=== PATIENT | male | born 1970 | race Hispanic/Latino ===

== ENCOUNTER 2016-12-20 16:08 | Emergency (ER) | payer MEDICAID ==
[2016-12-20 16:16] VITALS: TEMP 98.9
[2016-12-20] MEDS ORDERED: Famotidine 20mg/50ml 20 MG/50 ML BAG IVPB STA (16:25)
--- NOTE | 2016-12-20 16:30 | ED PDOC ---
Arrival/HPI - General Chief Complaint: Abdominal Pain Time Seen by Provider: 12/20/16 16:20 Historian: Patient - History of Present Illness Narrative History of Present Illness (Text): 12/20/16 16:25 45 yo male, h/o Hep C, appendectomy, tonsillectomy, presents to the ED c/o epigastric abdominal pain x 1 day. States he felt nauseous this morning and vomited a couple of times. No fever, chills or bodyaches. Abdominal pain felt achy and gassy. States that he last used alcohol yesterday and heroine IV yesterday. Patient denies back pain, diarrhea or constipation. No tremors. He's concerned that he missed his court appointment so would like a note. PMD: No PMD Past Medical History - Provider Review Nursing Documentation Reviewed: Yes - Cardiac Hx Cardiac Disorders: No Hx Hypertension: No - Pulmonary Hx Respiratory Disorders: No Hx Tuberculosis: No - Neurological HX Cerebrovascular Accident: No Hx Seizures: No - HEENT Hx HEENT Disorder: No - Renal Hx Renal Disorder: No - Endocrine/Metabolic Hx Endocrine Disorders: No - Hematological/Oncological Hx Blood Disorders: No Hx Cancer: No - Integumentary Hx Dermatological Disorder: No - Musculoskeletal/Rheumatological Hx Musculoskeletal Disorders: No - Gastrointestinal Other/Comment: ABD PAIN - Genitourinary/Gynecological Hx Genitourinary Disorders: No Hx Sexually Transmitted Diseases: No - Psychiatric Hx Psychophysiologic Disorder: No Hx Substance Use: Yes (ADMITS TO USING IV HEROINE 11/18) - Surgical History Hx Appendectomy: Yes Hx Tonsillectomy: Yes - Anesthesia Hx Anesthesia: Yes Family/Social History - Physician Review Nursing Documentation Reviewed: Yes Family/Social History: No Known Family HX Smoking Status: Light Smoker < 10 Cigarettes Daily Hx Alcohol Use: Yes Hx Substance Use: Yes (ADMITS TO USING IV HEROINE 11/18) Substance used: heroine Allergies/Home Meds Allergies/Adverse Reactions: Allergies No Known Allergies Allergy (Verified 12/20/16 16:11) Review of Systems - Physician Review All systems were reviewed & negative as marked: Yes - Review of Systems Constitutional: Normal Eyes: Normal ENT: Normal Respiratory: Normal Cardiovascular: Normal Gastrointestinal: Abdominal Pain, Vomiting. absent: Nausea Genitourinary Male: Normal Musculoskeletal: Normal Skin: Normal Neurological: Normal Endocrine: Normal Hemo/Lymphatic: Normal Psychiatric: Normal Physical Exam Vital Signs Reviewed: Yes Vital Signs Temp Pulse Resp BP Pulse Ox 12/20/16 16:11 98.9 F 83 17 137/78 99 Temperature: Afebrile Blood Pressure: Normal Pulse: Regular Respiratory Rate: Normal Appearance: Positive for: Well-Appearing, Non-Toxic, Comfortable Pain Distress: None Mental Status: Positive for: Alert and Oriented X 3 - Systems Exam Head: Present: Atraumatic, Normocephalic Pupils: Present: PERRL Extroacular Muscles: Present: EOMI Conjunctiva: Present: Normal Mouth: Present: Moist Mucous Membranes Neck: Present: Normal Range of Motion Respiratory/Chest: Present: Clear to Auscultation, Good Air Exchange. No: Respiratory Distress, Accessory Muscle Use Cardiovascular: Present: Regular Rate and Rhythm, Normal S1, S2. No: Murmurs Abdomen: Present: Tenderness (mild epigastric tenderness), Normal Bowel Sounds. No: Distention, Peritoneal Signs Back: Present: Normal Inspection Upper Extremity: Present: Normal Inspection. No: Cyanosis, Edema Lower Extremity: Present: Normal Inspection. No: Edema Neurological: Present: GCS=15, CN II-XII Intact, Speech Normal, Normal Cerebellar Funct. No: Motor Func Grossly Intact, Normal Sensory Function Skin: Present: Warm, Dry, Normal Color. No: Rashes Psychiatric: Present: Alert, Oriented x 3, Normal Insight, Normal Concentration Medical Decision Making ED Course and Treatment: 12/20/16 16:59 45 yo male with abdominal pain and vomiting r/o gastritis r/o pancreatitis -- Labs -- Pepcid IV -- IVF 12/20/16 17:52 Patient's LFT's mildly elevated. He is feeling and is asking for tylenol for a mild headache. Advised I can give him once dose to avoid tylenol use because of his elevated LFTs. Advised to take pepcid for the stomach and avoid nsaids spicy foods or anyother foods that will upset his stomach. He will f/u with his primary doctor he states that is offerred by his insurance. He also needed a note for court. I gave him a work note. 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 - Lab Interpretations Lab Results: 12/20/16 16:50 12/20/16 16:50 Lab Results 12/20/16 16:50: Sodium 136, Potassium 3.6, Chloride 104, Carbon Dioxide 23, Anion Gap 13, BUN 18, Creatinine 0.7, Est GFR ( Amer) > 60, Est GFR (Non- Af Amer) > 60, Random Glucose 142 H, Calcium 9.0, Total Bilirubin 0.9, AST 140 H , ALT 145 H, Alkaline Phosphatase 98, Total Protein 8.0, Albumin 4.0, Globulin 4.0, Albumin/Globulin Ratio 1.0 L, Lipase 30 12/20/16 16:50: WBC 3.0 L, RBC 3.87, Hgb 12.2 L, Hct 34.7 L, MCV 89.7, MCH 31.5 , MCHC 35.2, RDW 14.0, Plt Count 50 L, MPV 10.1, Gran % 67.7, Lymph % (Auto) 22.4, Levy % (Auto) 7.6 H, Eos % (Auto) 2.3, Baso % (Auto) 0.0, Gran # 2.05, Lymph # 0.7 L, Levy # 0.2, Eos # 0.1, Baso # 0.00 - Medication Orders Current Medication Orders: Acetaminophen (Tylenol 325mg Tab) 650 mg PO STAT STA Stop: 12/20/16 17:52 Sodium Chloride (Sodium Chloride 0.9%) 1,000 mls @ 999 mls/hr IV .Q1H1M STA Stop: 12/20/16 18:00 Last Admin: 12/20/16 17:05 Dose: 999 mls/hr Ibuprofen (Motrin Tab) 600 mg PO STAT STA Stop: 12/20/16 17:52 Discontinued Medications Famotidine (Pepcid 20mg/50ml Premix) 20 mg in 50 mls @ 100 mls/hr IVPB STAT STA Stop: 12/20/16 16:54 Last Admin: 12/20/16 17:04 Dose: 100 mls/hr Disposition/Present on Arrival - Present on Arrival Any Indicators Present on Arrival: No History of DVT/PE: No History of Uncontrolled Diabetes: No Urinary Catheter: No History of Decub. Ulcer: No History Surgical Site Infection Following: None - Disposition Have Diagnosis and Disposition been Completed?: Yes Diagnosis: Abdominal pain Disposition: HOME/ ROUTINE Disposition Time: 17:55 Patient Plan: Discharge Patient Problems: Current Active Problems Problem Status Onset Abdominal pain Acute Condition: IMPROVED Discharge Instructions (ExitCare): Narcotic Abuse (ED), Acute Abdominal Pain ( ED) Additional Instructions: Mr Eddy, thank you for letting us take care of you today. Your provider was Dr. Cox. You were treated for Abdominal Pain, elevated Liver enzymes. The emergency medical care you received today was directed at your acute symptoms. If you were prescribed any medication, please fill it and take as directed. It may take several days for your symptoms to resolve. Return to the Emergency Department if your symptoms worsen, do not improve, or if you have any other problems. Please contact your doctor or call one of the physicians/clinics you have been referred to that are listed on the Patient Visit Information form that is included in your discharge packet. Bring any paperwork you were given at discharge with you along with any medications you are taking to your follow up visit. Our treatment cannot replace ongoing medical care by a primary care provider (PCP) outside of the emergency department. Thank you for allowing the [facility] team to be part of your care today. If you had an X-Ray or CT scan: A Radiologist will review the ED reading if any change in treatment is needed we will contact you. If you had a blood, urine, or wound culture: It will take several days for the results, if any change in treatment is needed we will contact you. If you had an STI test: It will take 48 hours for the results. Please call after 1 week if you have not heard back. Prescriptions: Ranitidine HCl [Zantac] 150 mg PO BID PRN #30 tablet PRN Reason: Pain, Mild (1-3) Referrals: Elidia Lieberman DO [Primary Care Provider] - Follow up with primary Forms: [employer] (Kittitian), WORK NOTE
[2016-12-20] MEDS ORDERED: Sodium Chloride 0.9% 1,000 ML IV STA (17:00)
[2016-12-20 17:04] LABS: ADD MANUAL DIFF? NO
[2016-12-20 17:08] LABS: EOS # 0.1 (0.0-0.7); EOS % 2.3 % (1.5-5.0); GRAN # 2.05 (1.4-6.5); GRAN % 67.7 % (50.0-68.0); HEMATOCRIT 34.7 % (42.0-52.0); LYMPH # 0.7 (1.2-3.4); LYMPH % 22.4 % (22.0-35.0); MEAN CELL VOLUME 89.7 fL (80.0-105.0); MEAN CORPUSCULAR HEMOGLOBIN 31.5 pg (25.0-35.0); MEAN CORPUSCULAR HGB CONC 35.2 g/dl (31.0-37.0); MEAN PLATELET VOLUME 10.1 fl (7.0-11.0); MONO # 0.2 (0.1-0.6); MONO % 7.6 % (1.0-6.0); PLATELET COUNT 50 10^3/uL (120.0-450.0)
[2016-12-20 17:28] LABS: ALKALINE PHOSPHATASE 98 U/L (38-133); ALT/SGPT 145 U/L (7-56); AST/SGOT 140 U/L (15-59); BILIRUBIN,TOTAL 0.9 mg/dL (0.2-1.3); BLOOD UREA NITROGEN 18 mg/dL (7-21); CARBON DIOXIDE 23 mmol/L (21-33); CHLORIDE 104 mmol/L (98-107); GFR AFRICAN-AMERICAN > 60; GLUCOSE,RANDOM 142 mg/dL (70-110); LIPASE 30 U/L (23-300); POTASSIUM 3.6 mmol/L (3.6-5.0); SODIUM 136 mmol/L (132-148)
[2016-12-20 17:54] VITALS: BP 120/72; PULSE 63; RESP 18; O2SAT 97
== END 2016-12-20 18:15 | disposition home or self-care (01) ==
LOC: ED 16:08
DX: R10.9 Unspecified abdominal pain (principal)
CPT/HCPCS: 80053; 83690; 85025; 99283; J7040

== ENCOUNTER 2017-11-11 12:09 | Emergency (ER) | payer MEDICAID, OTHER ==
[2017-11-11 12:30] VITALS: BP 129/70; O2SAT 99
--- NOTE | 2017-11-11 12:37 | ED PDOC ---
Arrival/HPI - General Chief Complaint: Substance Abuse Time Seen by Provider: 11/11/17 12:33 Historian: Patient - History of Present Illness Narrative History of Present Illness (Text): 11/11/17 46 year old male, who presents to the emergency department s/p being found wandering on the streets after sniffing two bags of Heroin. Patient reports he is an occasional drinker and did not consume ETOH today. Patient notes on the daily he uses one to two bags of heroin by sniffing. patient currently has no other complaints. Time/Duration: Prior to Arrival Symptom Onset: Sudden Symptom Course: Unchanged Context: Street Past Medical History - Provider Review Nursing Documentation Reviewed: Yes - Infectious Disease Hx of Infectious Diseases: None - Cardiac Hx Cardiac Disorders: No Hx Hypertension: No - Pulmonary Hx Respiratory Disorders: No Hx Tuberculosis: No - Neurological HX Cerebrovascular Accident: No Hx Seizures: No - HEENT Hx HEENT Disorder: No - Renal Hx Renal Disorder: No - Endocrine/Metabolic Hx Endocrine Disorders: No - Hematological/Oncological Hx Blood Disorders: No Hx Cancer: No - Integumentary Hx Dermatological Disorder: No - Musculoskeletal/Rheumatological Hx Musculoskeletal Disorders: No - Gastrointestinal Other/Comment: ABD PAIN - Genitourinary/Gynecological Hx Genitourinary Disorders: No Hx Sexually Transmitted Diseases: No - Psychiatric Hx Psychophysiologic Disorder: No Hx Substance Use: Yes (ADMITS TO USING IV HEROINE 11/18) - Surgical History Hx Appendectomy: Yes Hx Tonsillectomy: Yes - Anesthesia Hx Anesthesia: Yes Family/Social History - Physician Review Nursing Documentation Reviewed: Yes Family/Social History: Unknown Family HX Smoking Status: Light Smoker < 10 Cigarettes Daily Hx Alcohol Use: Yes Hx Substance Use: Yes (ADMITS TO USING IV HEROINE 11/18) Substance used: heroine Allergies/Home Meds Allergies/Adverse Reactions: Allergies No Known Allergies Allergy (Verified 12/20/16 16:11) Review of Systems - Physician Review All systems were reviewed & negative as marked: Yes - Review of Systems Constitutional: absent: Fevers Respiratory: absent: SOB Cardiovascular: absent: Chest Pain Psychiatric: Other (heroin use) Physical Exam Vital Signs Reviewed: Yes Vital Signs Temp Pulse Resp BP Pulse Ox 11/11/17 13:52 98.1 F 70 19 99 11/11/17 12:29 98.6 F 68 18 129/70 99 Temperature: Afebrile Blood Pressure: Normal Pulse: Regular Respiratory Rate: Normal Appearance: Positive for: Well-Appearing, Non-Toxic, Comfortable Pain Distress: None Mental Status: Positive for: Alert and Oriented X 3 - Systems Exam Head: Present: Atraumatic, Normocephalic Pupils: Present: PERRL Extroacular Muscles: Present: EOMI Conjunctiva: Present: Normal Respiratory/Chest: Present: Clear to Auscultation, Good Air Exchange. No: Respiratory Distress, Accessory Muscle Use, Wheezes, Decreased Breath Sounds, Rhonchi Cardiovascular: Present: Regular Rate and Rhythm, Normal S1, S2. No: Murmurs Abdomen: No: Tenderness, Distention, Peritoneal Signs, Rebound, Guarding Neurological: Present: GCS=15, CN II-XII Intact, Speech Normal Skin: Present: Warm, Dry, Normal Color. No: Rashes Psychiatric: Present: Alert, Oriented x 3, Normal Insight, Normal Concentration Medical Decision Making ED Course and Treatment: 11/11/17 Impression: 46 year old male with unremarkable exam who presents to emergency department s/ p heroin use Plan: -- EKG -- Labs -- Reassess and disposition Progress Notes: EKG: Ordered, reviewed, and independently interpreted the EKG. Rate : 68 BPM Rhythm : NSR Interpretation : No ST-segment elevations or depressions, no T-wave inversions, normal intervals. Comparison : No previous EKG for comparison. 11/11/17 13:47 Patient is currently alert, awake, and oriented with no present complaints. - Lab Interpretations Lab Results: 11/11/17 12:25 11/11/17 12:25 Lab Results 11/11/17 13:23: Urine Opiates Screen Positive H, Urine Methadone Screen Negative , Ur Barbiturates Screen Negative, Ur Phencyclidine Scrn Negative, Ur Amphetamines Screen Negative, U Benzodiazepines Scrn Negative, U Oth Cocaine Metabols Positive H, U Cannabinoids Screen Negative 11/11/17 12:25: Alcohol, Quantitative < 10 11/11/17 12:25: Salicylates < 1 L, Acetaminophen < 10.0 L 11/11/17 12:25: Sodium 144, Potassium 3.5 L, Chloride 111 H, Carbon Dioxide 23, Anion Gap 14, BUN 16, Creatinine 0.7 L, Est GFR ( Amer) > 60, Est GFR ( Non-Af Amer) > 60, Random Glucose 189 H, Calcium 8.6, Total Bilirubin 0.9, AST 146 H, ALT 116 H, Alkaline Phosphatase 110, Total Protein 7.2, Albumin 3.5, Globulin 3.7, Albumin/Globulin Ratio 0.9 L 11/11/17 12:25: WBC 1.8 L* D, RBC 3.76, Hgb 11.5 L, Hct 34.0 L, MCV 90.4, MCH 30.6, MCHC 33.8, RDW 15.1 H, Plt Count 48 L*, MPV 10.6, Gran % 58.1, Lymph % ( Auto) 30.2, Shannon % (Auto) 5.0, Eos % (Auto) 6.7 H, Baso % (Auto) 0.0, Gran # 1.04 L, Lymph # (Auto) 0.5 L, Shannon # (Auto) 0.1, Eos # (Auto) 0.1, Baso # (Auto ) 0.00 I have reviewed the lab results: Yes - EKG Interpretation Interpreted by ED Physician: Yes Type: 12 lead EKG - Scribe Statement The provider has reviewed the documentation as recorded by the Perrye Sofie Brunson Provider Scribe Attestation: All medical record entries made by the Akikoibe were at my direction and personally dictated by me. I have reviewed the chart and agree that the record accurately reflects my personal performance of the history, physical exam, medical decision making, and the department course for this patient. I have also personally directed, reviewed, and agree with the discharge instructions and disposition. Disposition/Present on Arrival - Present on Arrival Any Indicators Present on Arrival: No History of DVT/PE: No History of Uncontrolled Diabetes: No Urinary Catheter: No History of Decub. Ulcer: No History Surgical Site Infection Following: None - Disposition Have Diagnosis and Disposition been Completed?: Yes Diagnosis: Heroin abuse, Thrombocytopenia, Leukopenia Disposition: HOME/ ROUTINE Disposition Time: 13:15 Condition: IMPROVED Discharge Instructions (ExitCare): Drug Abuse and Drug Addiction (DC) Additional Instructions: Thank you for letting us take care of you today. The emergency medical care you received today was directed at your acute symptoms. If you were prescribed any medication, please fill it and take as directed. It may take several days for your symptoms to resolve. Return to the Emergency Department if your symptoms worsen, do not improve, or if you have any other problems. Please contact your doctor or call one of the physicians/clinics you have been referred to that are listed on the Patient Visit Information form that is included in your discharge packet. Bring any paperwork you were given at discharge with you along with any medications you are taking to your follow up visit. Our treatment cannot replace ongoing medical care by a primary care provider (PCP) outside of the emergency department. Thank you for allowing the [facility] team to be part of your care today. Follow up with your primary doctor in 2-3 days for re-evaluation and further management. Referrals: John Lieberman APN [Primary Care Provider] - Follow up with primary Forms: [employer] (Malawian)
[2017-11-11 12:43] LABS: EOS # 0.1 (0.0-0.7); EOS % 6.7 % (1.5-5.0); GRAN # 1.04 (1.4-6.5); GRAN % 58.1 % (50.0-68.0); HEMOGLOBIN 11.5 g/dL (14.0-18.0); LYMPH # 0.5 (1.2-3.4); LYMPH % 30.2 % (22.0-35.0); MEAN CELL VOLUME 90.4 fl (80.0-105.0); MEAN CORPUSCULAR HEMOGLOBIN 30.6 pg (25.0-35.0); MEAN CORPUSCULAR HGB CONC 33.8 g/dl (31.0-37.0); MEAN PLATELET VOLUME 10.6 fl (7.0-11.0); MONO # 0.1 (0.1-0.6); RBC 3.76 10^6/uL (3.5-6.1); RED CELL DISTRIBUTION WIDTH 15.1 % (11.5-14.5)
[2017-11-11 12:53] LABS: WHITE BLOOD COUNT 1.8 10^3/ul (4.5-11.0)
[2017-11-11 12:57] LABS: ALB/GLOB RATIO 0.9 (1.1-1.8); ALBUMIN 3.5 g/dL (3.0-4.8); ALT/SGPT 116 U/L (7-56); AST/SGOT 146 U/L (17-59); BLOOD UREA NITROGEN 16 mg/dL (7-21); CALCIUM 8.6 mg/dL (8.4-10.5); GFR AFRICAN-AMERICAN > 60; GFR NON-AFRICAN AMERICAN > 60
[2017-11-11 12:58] LABS: ACETAMINOPHEN < 10.0 ug/ml (10.0-20.0); SALICYLATE < 1 mg/dL (2.0-20.0)
[2017-11-11 13:52] VITALS: PULSE 70; RESP 19; TEMP 98.1
[2017-11-11 13:57] LABS: BARBITURATES, UR NEGATIVE (NEGATIVE); BENZODIAZEPINES, UR NEGATIVE (NEGATIVE); OPIATES, UR POSITIVE (NEGATIVE); PHENCYCLIDINE, UR NEGATIVE (NEGATIVE)
--- NOTE | 2017-11-12 10:05 | CARD ---
APPROVED REPORT EKG Measurement Heart [id number] VT 130P-7 [id number] <Conclusion> Normal sinus rhythm Mild NSSTW changes Prolonged QTc
== END 2017-11-11 13:55 | disposition home or self-care (01) ==
LOC: ED 12:09
DX: F11.10 Opioid abuse, uncomplicated (principal); D69.6 Thrombocytopenia, unspecified; D72.819 Decreased white blood cell count, unspecified
CPT/HCPCS: 80053; 85025; 93005; 99283; G0480

== ENCOUNTER 2018-03-20 08:04 | Emergency (ER) | payer MEDICAID ==
[2018-03-20] MEDS ORDERED: Bupivacaine 0.5% Inj(30mL) IJ STA (08:21)
--- NOTE | 2018-03-20 08:30 | ED PDOC ---
Arrival/HPI - General Chief Complaint: Upper Extremity Problem/Injury Time Seen by Provider: 03/20/18 08:07 Historian: Patient - History of Present Illness Narrative History of Present Illness (Text): 03/20/18 08:25 47 year old male, with no significant past medical history, presents to the emergency department complaining of injuring his left thumb at work. 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 Patient thinks he smashed his left thumb with a sledge hammer. The palmar surface is swollen, tender, and pointing appearing like a felon. Patient now denies ever smoking, drinking, or drug use, but old records indicate otherwise. Patient denies any back pain, neck pain, headache, dizziness, or any other complaints/injuries. PMD: Dr. Lieberman Symptom Onset: Sudden Symptom Course: Unchanged Activities at Onset: Light Context: Work Past Medical History - Provider Review Nursing Documentation Reviewed: Yes - Infectious Disease Hx of Infectious Diseases: None - Cardiac Hx Cardiac Disorders: No - Pulmonary Hx Respiratory Disorders: No - Neurological Hx Neurological Disorder: No - HEENT Hx HEENT Disorder: No - Renal Hx Renal Disorder: No - Endocrine/Metabolic Hx Endocrine Disorders: No - Hematological/Oncological Hx Blood Disorders: No - Integumentary Hx Dermatological Disorder: No - Musculoskeletal/Rheumatological Hx Musculoskeletal Disorders: No - Gastrointestinal Other/Comment: ABD PAIN - Genitourinary/Gynecological Hx Genitourinary Disorders: No - Psychiatric Hx Psychophysiologic Disorder: Yes Hx Substance Use: Yes (ADMITS TO USING IV HEROINE 11/18) Other/Comment: IV drug user - Surgical History Hx Appendectomy: Yes Hx Tonsillectomy: Yes - Anesthesia Hx Anesthesia: Yes Family/Social History - Physician Review Nursing Documentation Reviewed: Yes Family/Social History: No Known Family HX Smoking Status: Light Smoker < 10 Cigarettes Daily Hx Alcohol Use: Yes Frequency of alcohol use: Socially Hx Substance Use: Yes (ADMITS TO USING IV HEROINE 11/18) Substance used: heroine Allergies/Home Meds Allergies/Adverse Reactions: Allergies No Known Allergies Allergy (Verified 03/20/18 08:16) Review of Systems - Physician Review All systems were reviewed & negative as marked: Yes - Review of Systems Musculoskeletal: Other (Left thumb injuried ). absent: Back Pain, Neck Pain Neurological: absent: Headache, Dizziness Physical Exam Vital Signs Reviewed: Yes Vital Signs Temp Pulse Resp BP Pulse Ox 03/20/18 09:42 98.5 F 68 17 130/68 100 03/20/18 09:36 98.2 F 68 17 130/68 100 03/20/18 08:13 98.1 F 58 L 18 133/78 99 Temperature: Afebrile Blood Pressure: Normal Pulse: Regular Respiratory Rate: Normal Appearance: Positive for: Well-Appearing, Non-Toxic, Comfortable Pain Distress: None Mental Status: Positive for: Alert and Oriented X 3 - Systems Exam Head: Present: Atraumatic, Normocephalic Pupils: Present: PERRL Extroacular Muscles: Present: EOMI Conjunctiva: Present: Normal Mouth: Present: Moist Mucous Membranes Back: Present: Normal Inspection Upper Extremity: Present: Other (Left distal thumb is tender, swollen, and pointing. Appears to be a felon.). No: Cyanosis, Edema Skin: Present: Warm, Dry, Normal Color. No: Rashes Medical Decision Making ED Course and Treatment: 03/20/18 08:25 Impression: 47 year old male presents complaining of smashing his left thumb with a sledge hammer at work. Left distal thumb is tender, swollen, and pointing appearing to be a felon. Plan: -- Marcaine 0.5% -- Hand left thumb x-ray -- Reassess and disposition Prior Visits: Notes and results from previous visits were reviewed. Progress Notes: PROCEDURE: Left Thumb radiographs. Dictator : Jorge Mccartney MD Report Date : 03/20/2018 09:12:03 IMPRESSION: Left thumb distal soft tissue edema without other focal soft tissue findings. No acute fracture or dislocation left thumb. 03/20/18 09:23 Incision and drainage. The abscess was prepped and draped in usual sterile fashion using Betadine. 0.5% Marcaine digital block. The felon was incised with #11 blade. Purulent material expressed. Sterile dressing applied. Tolerated well. 03/20/18 09:24 Patient reports that he was due in court this morning. He states he needs a note. I told him that his discharge instructions with today's date on it should suffice as his note. - RAD Interpretation Radiology Orders: 03/20/18 08:21 HAND LEFT THUMB [RAD] Stat X-ray left thumb shows distal soft tissue swelling with no foreign body and no fracture or dislocation. Skin Grader: ED Physician - Medication Orders Current Medication Orders: Discontinued Medications Acetaminophen (Tylenol 325mg Tab) 975 mg PO STAT STA Stop: 03/20/18 09:37 Last Admin: 03/20/18 09:39 Dose: 975 mg MAR Pain/Vitals Document 03/20/18 09:39 [facility] (Rec: 03/20/18 09:40 [facility] [id number]) Pain Reassessment Is This A Pain ReAssessment? Yes Sleep Is patient sleeping during reassessment? No Presence of Pain Presence of Pain Yes Pain Scale Used Pain Scale Used Numeric Location Left, Right or Bilateral Left Pain Location Body Site Finger Description Constant Intensity 5 Scale Used Numeric Bupivacaine HCl (Marcaine 0.5%) 6 ml IJ STAT STA Stop: 03/20/18 08:22 Last Admin: 03/20/18 08:36 Dose: 1 ml Comments: given to doctor for use on the patient. - Scribe Statement The provider has reviewed the documentation as recorded by the Rivka Glass Provider Scribe Attestation: All medical record entries made by the Rivka were at my direction and personally dictated by me. I have reviewed the chart and agree that the record accurately reflects my personal performance of the history, physical exam, medical decision making, and the department course for this patient. I have also personally directed, reviewed, and agree with the discharge instructions and disposition. Disposition/Present on Arrival - Present on Arrival Any Indicators Present on Arrival: No History of DVT/PE: No History of Uncontrolled Diabetes: No Urinary Catheter: No History of Decub. Ulcer: No History Surgical Site Infection Following: None - Disposition Have Diagnosis and Disposition been Completed?: Yes Diagnosis: Felon of finger of left hand Disposition: HOME/ ROUTINE Disposition Time: 09:26 Patient Plan: Discharge Condition: IMPROVED Discharge Instructions (ExitCare): Cellulitis and Erysipelas (Skin Infections) Additional Instructions: Wound precautions. Wound check in 2 days. Follow-up with PMD. Follow up in ER as needed. Augmentin twice a day. Prescriptions: Amoxicillin/Clavulanate [Augmentin 875 MG-125 MG] 1 tab PO Q12 #20 tab Referrals: Elidia Lieberman DO [Primary Care Provider] - Follow up with primary Forms: [employer] (Slovenian)
--- NOTE | 2018-03-20 09:13 | RAD ---
Date of service: 03/20/2018 PROCEDURE: Left Thumb radiographs. HISTORY: trauma COMPARISON: None. TECHNIQUE: AP radiograph of the left hand, as well as spot oblique and lateral images of thumb were obtained. FINDINGS: LEFT THUMB: Normal left thumb, without fracture or focal lesion. Remainder of the left hand (as seen on the AP view) grossly unremarkable. JOINTS: Normal. SOFT TISSUES: Mild distal left thumb soft tissue edema identified. No retained radiodense foreign body or emphysematous soft tissue changes identified. OTHER FINDINGS: None. IMPRESSION: Left thumb distal soft tissue edema without other focal soft tissue findings. No acute fracture or dislocation left thumb.
[2018-03-20 09:37] VITALS: BP 130/68; PULSE 68; RESP 17; O2SAT 100
[2018-03-20 09:43] VITALS: TEMP 98.5
== END 2018-03-20 09:43 | disposition home or self-care (01) ==
LOC: ED 08:04
DX: L03.012 Cellulitis of left finger (principal)

== ENCOUNTER 2018-04-18 07:59 | Emergency (ER) | payer MEDICAID ==
--- NOTE | 2018-04-18 08:17 | ED PDOC ---
Arrival/HPI - General Time Seen by Provider: 04/18/18 08:05 Historian: Patient - History of Present Illness Narrative History of Present Illness (Text): 04/18/18 08:14 A 47 year old male, whose past medical history includes HTN, Hepatitis C, IV heroin drug use, presents to the emergency department with a complaint of swelling to the distal right, 3rd digit. The patient notes that the swelling to the distal finger began about 2 days go. He also notes similiar occurence months ago to his other hand, his thumb. He notes that he last used heroin last night. The patient denies fevers, chills, headache, dizziness, sore throat, cough, chest pain, shortness of breath, dyspnea on exertion, abdominal pain, nausea, vomiting, diarrhea, neck/back pain, urinary/bowel changes or any other complaint. PMD: Dr. Barth Time/Duration: Other (2 days) Symptom Onset: Sudden Symptom Course: Worsening Activities at Onset: Rest, Light Context: Home Past Medical History - Provider Review Nursing Documentation Reviewed: Yes - Infectious Disease Hx of Infectious Diseases: None - Cardiac Hx Cardiac Disorders: No - Pulmonary Hx Respiratory Disorders: No - Neurological Hx Neurological Disorder: No - HEENT Hx HEENT Disorder: No - Renal Hx Renal Disorder: No - Endocrine/Metabolic Hx Endocrine Disorders: No - Hematological/Oncological Hx Blood Disorders: No - Integumentary Hx Dermatological Disorder: No - Musculoskeletal/Rheumatological Hx Musculoskeletal Disorders: No - Gastrointestinal Other/Comment: ABD PAIN - Genitourinary/Gynecological Hx Genitourinary Disorders: No - Psychiatric Hx Psychophysiologic Disorder: No Hx Substance Use: Yes (ADMITS TO USING IV HEROINE 11/18) - Surgical History Hx Appendectomy: Yes Hx Tonsillectomy: Yes - Anesthesia Hx Anesthesia: Yes Family/Social History - Physician Review Nursing Documentation Reviewed: Yes Family/Social History: No Known Family HX Smoking Status: Light Smoker < 10 Cigarettes Daily Hx Alcohol Use: Yes Hx Substance Use: Yes (ADMITS TO USING IV HEROINE 11/18) Substance used: heroine Allergies/Home Meds Allergies/Adverse Reactions: Allergies No Known Allergies Allergy (Verified 04/18/18 08:15) Review of Systems - Physician Review All systems were reviewed & negative as marked: Yes - Review of Systems Constitutional: absent: Fevers ENT: absent: Sore Throat Respiratory: absent: SOB, Cough Cardiovascular: absent: Chest Pain, COMBS Gastrointestinal: absent: Abdominal Pain, Stool Changes, Diarrhea, Nausea, Vomiting Genitourinary Male: absent: Urinary Output Changes Musculoskeletal: Other (Swelling to right 3rd digit). absent: Back Pain, Neck Pain Neurological: absent: Headache, Dizziness Physical Exam Vital Signs Reviewed: Yes Temperature: Afebrile Blood Pressure: Normal Pulse: Regular Respiratory Rate: Normal Appearance: Positive for: Well-Appearing, Non-Toxic, Comfortable Pain Distress: None Mental Status: Positive for: Alert and Oriented X 3 - Systems Exam Head: Present: Atraumatic, Normocephalic Pupils: Present: PERRL Extroacular Muscles: Present: EOMI Conjunctiva: Present: Normal Mouth: Present: Moist Mucous Membranes Neck: Present: Normal Range of Motion Respiratory/Chest: Present: Clear to Auscultation, Good Air Exchange. No: Respiratory Distress, Accessory Muscle Use Cardiovascular: Present: Regular Rate and Rhythm, Normal S1, S2. No: Murmurs Abdomen: No: Tenderness, Distention, Peritoneal Signs Back: Present: Normal Inspection Upper Extremity: Present: Other (1cm x 1cm abscess to right 3rd digit. No Kanavel sign : no pain with passive extension. No fusiform swelling. No flexion posture. No percussion tenderness.). No: Cyanosis, Edema Lower Extremity: Present: Normal Inspection. No: Edema Neurological: Present: GCS=15, CN II-XII Intact, Speech Normal Skin: Present: Warm, Dry, Normal Color. No: Rashes Psychiatric: Present: Alert, Oriented x 3, Normal Insight, Normal Concentration Medical Decision Making ED Course and Treatment: Impression: A 47 year old male presents to the emergency department with a complaint of 2 day duration swelling to the distal right, 3rd digit. abscess noted 1x1 cm w/ fluctuance. No crepitus. No kanavels signs on my review. Plan: -- Right Hand X- Ray -- Reassess and disposition Prior Visits: Notes and results from previous visits were reviewed. Progress Notes: 04/18/18 10:32 No osteo on XR. No XR Procedure: Incision & Drainage Performed by the emergency provider Indication: Abscess Location: Felon of right 3rd digit Preparation: The area was prepped and draped in the usual sterile fashion and was cleansed using Betadine. Local infiltration of 2% Lidocaine with no Epi was used for anesthesia. Procedure: The felon was incised with #11 blade. Purulent material expressed. Post-Procedure:The patient tolerated the procedure well, and there were no complications. Sterile dressing applied. Patient noted improvement of pain. Reassessed. Remains with no Kanaval signs. Cultured: YES 04/18/18 10:56 given abx script for home given felaltagracia, hx of IVDU. Encouraged by myself to d/c heroin usagn. - Scribe Statement The provider has reviewed the documentation as recorded by the Scribe Nereida Israel Provider Scribe Attestation: All medical record entries made by the Scribe were at my direction and personally dictated by me. I have reviewed the chart and agree that the record accurately reflects my personal performance of the history, physical exam, medical decision making, and the department course for this patient. I have also personally directed, reviewed, and agree with the discharge instructions and disposition. a Disposition/Present on Arrival - Present on Arrival Any Indicators Present on Arrival: No History of DVT/PE: No History of Uncontrolled Diabetes: No Urinary Catheter: No History Surgical Site Infection Following: None - Disposition Have Diagnosis and Disposition been Completed?: Yes Diagnosis: Felon of finger of right hand Disposition: HOME/ ROUTINE Disposition Time: 10:30 Patient Problems: Current Active Problems Problem Status Onset Felon of finger of right hand Acute Condition: GOOD Discharge Instructions (ExitCare): Boil, Abscess Drainage, Percutaneous (DC) Additional Instructions: PAOLA RAMÍREZ, thank you for letting us take care of you today. Your provider was Kayden Lamas and you were treated for finger problem. The emergency medical care you received today was directed at your acute symptoms. If you were prescribed any medication, please fill it and take as directed. It may take several days for your symptoms to resolve. Return to the Emergency Department if your symptoms worsen, do not improve, or if you have any other problems. Please contact your doctor or call one of the physicians/clinics you have been referred to that are listed on the Patient Visit Information form that is included in your discharge packet. Bring any paperwork you were given at discharge with you along with any medications you are taking to your follow up visit. Our treatment cannot replace ongoing medical care by a primary care provider outside of the emergency department. Thank you for allowing the [facility] team to be part of your care today. If you had an X-Ray or CT scan: A Radiologist will review the ED reading if any change in treatment is needed we will contact you. If you had a blood, urine, or wound culture: It will take several days for the results, if any change in treatment is needed we will contact you. If you had an STI test: It will take 48 hours for the results. Please call after 1 week if you have not heard back. Prescriptions: Clindamycin [Cleocin] 450 mg PO TID 5 Days #45 cap Referrals: Kacey Puga MD [Medical Doctor] - Follow up with primary Forms: [employer] ([place])
[2018-04-18 08:19] VITALS: RESP 18; TEMP 98.5; O2SAT 100; BMI 25.7
--- NOTE | 2018-04-18 11:05 | RAD ---
PROCEDURE: Right Hand Radiographs. HISTORY: 3rd digit abscess COMPARISON: None available. FINDINGS: BONES: No acute displaced fracture. No erosive changes or destructive osseous abnormality appreciated. JOINTS: No dislocation. SOFT TISSUES: Soft tissue swelling 3rd digit. No evidence of radiopaque foreign body. OTHER FINDINGS: None. IMPRESSION: Soft tissue swelling, 3rd digit.
[2018-04-18 11:10] VITALS: BP 128/76; PULSE 72
== END 2018-04-18 11:37 | disposition home or self-care (01) ==
LOC: ED 07:59
DX: L03.011 Cellulitis of right finger (principal)

== ENCOUNTER 2018-11-19 19:27 | Inpatient (IN) | payer MEDICAID ==
[2018-11-19 19:28] VITALS: BMI 25.7
--- NOTE | 2018-11-19 20:50 | ED PDOC ---
Arrival/HPI - General Chief Complaint: Abnormal Skin Integrity Time Seen by Provider: 11/19/18 20:30 Historian: Patient - History of Present Illness Narrative History of Present Illness (Text): 11/19/18 20:50 Nestor Eddy is a 47 year old male, whose past medical history includes hypertension, Hepatitis C, and IV drug abuse, who presents to the ED complaining of an abscess to his right forearm. Patient states he recently injected heroin in to his right forearm a few days prior and developed redness, swelling, and pain to his right forearm. Patient states the needle did not break in his arm. Patient denies any fever, chills, numbness/weakness/tingling in the extremity, or any other complaints. Symptom Onset: Gradual Symptom Course: Unchanged Activities at Onset: Light Context: Home Past Medical History - Provider Review Nursing Documentation Reviewed: Yes - Infectious Disease Hx of Infectious Diseases: None - Cardiac Hx Cardiac Disorders: No - Pulmonary Hx Respiratory Disorders: No - Neurological Hx Neurological Disorder: No - HEENT Hx HEENT Disorder: No - Renal Hx Renal Disorder: No - Endocrine/Metabolic Hx Endocrine Disorders: No - Hematological/Oncological Hx Blood Disorders: No Hx Hepatitis C: Yes - Integumentary Hx Dermatological Disorder: No - Musculoskeletal/Rheumatological Hx Musculoskeletal Disorders: No - Gastrointestinal Other/Comment: ABD PAIN - Genitourinary/Gynecological Hx Genitourinary Disorders: No - Psychiatric Hx Psychophysiologic Disorder: No Hx Substance Use: Yes (ADMITS TO USING IV HEROINE 11/18) - Surgical History Hx Appendectomy: Yes Hx Cholecystectomy: Yes Hx Tonsillectomy: Yes - Anesthesia Hx Anesthesia: Yes Hx Anesthesia Reactions: No Hx Malignant Hyperthermia: No Family/Social History - Physician Review Nursing Documentation Reviewed: Yes Family/Social History: Unknown Family HX Smoking Status: Light Smoker < 10 Cigarettes Daily Hx Alcohol Use: Yes Hx Substance Use: Yes (ADMITS TO USING IV HEROINE 11/18) Substance used: heroine Allergies/Home Meds Allergies/Adverse Reactions: Allergies No Known Allergies Allergy (Verified 04/18/18 08:15) Review of Systems - Physician Review All systems were reviewed & negative as marked: Yes - Review of Systems Constitutional: Normal. absent: Fevers Eyes: Normal ENT: Normal Respiratory: Normal. absent: SOB, Cough Cardiovascular: Normal. absent: Chest Pain Gastrointestinal: Normal. absent: Abdominal Pain, Diarrhea, Nausea, Vomiting Genitourinary Male: Normal. absent: Dysuria, Frequency, Hematuria, Urinary Output Changes Musculoskeletal: Normal. absent: Back Pain, Neck Pain Skin: Abscess (+abscess to right forearm). absent: Rash Neurological: Normal. absent: Headache, Dizziness Endocrine: Normal Hemo/Lymphatic: Normal Psychiatric: Normal Physical Exam Vital Signs Reviewed: Yes Vital Signs Temp Pulse Resp BP Pulse Ox 11/19/18 20:27 98.9 F 83 18 112/66 100 Temperature: Afebrile Blood Pressure: Normal Pulse: Regular Respiratory Rate: Normal Appearance: Positive for: Well-Appearing, Non-Toxic, Comfortable Pain Distress: None Mental Status: Positive for: Alert and Oriented X 3 - Systems Exam Head: Present: Atraumatic, Normocephalic Pupils: Present: PERRL Extroacular Muscles: Present: EOMI Conjunctiva: Present: Normal Mouth: Present: Moist Mucous Membranes Neck: Present: Normal Range of Motion Respiratory/Chest: Present: Clear to Auscultation, Good Air Exchange. No: Respiratory Distress, Accessory Muscle Use Cardiovascular: Present: Regular Rate and Rhythm, Normal S1, S2. No: Murmurs Abdomen: No: Tenderness, Distention, Peritoneal Signs Back: Present: Normal Inspection Upper Extremity: Present: Swelling (Swelling to right forearm), Erythema (Erythema to right forearm). No: Cyanosis, Edema Lower Extremity: Present: Normal Inspection. No: Edema Neurological: Present: GCS=15, CN II-XII Intact, Speech Normal Skin: Present: Warm, Dry, Normal Color. No: Rashes Psychiatric: Present: Alert, Oriented x 3, Normal Insight, Normal Concentration Medical Decision Making ED Course and Treatment: 11/19/18 20:50 Impression: 47 year old male complaining of an abscess to right forearm after injecting heroin a few days prior. Plan: -- Labs. blood cultures -- XR Right Forearm -- Vancomycin -- Reassess and disposition Prior Visits: Notes and results from previous visits were reviewed. Progress Notes: 11/19/18 21:17 Case discussed with adjunct faculty for medical terminology and salesperson surgical appliances aviation manager, who are aware of plan. 11/19/18 21:[address] Head, who is aware and agrees with plan. Accepts pt in to hospitalist service. Pt will be admitted to [facility] for cellulitis for forearm abscess and cellulitis of arm. 11/20/18 00:31 XR Right Forearm reviewed, shows no foreign body or acute processes noted. - Lab Interpretations I have reviewed the lab results: Yes - RAD Interpretation Elevator Inspector: ED Physician - Scribe Statement The provider has reviewed the documentation as recorded by the Rivka Collins Provider Scribe Attestation: All medical record entries made by the Scribe were at my direction and personally dictated by me. I have reviewed the chart and agree that the record accurately reflects my personal performance of the history, physical exam, medical decision making, and the department course for this patient. I have also personally directed, reviewed, and agree with the discharge instructions and disposition. Disposition/Present on Arrival - Present on Arrival History of DVT/PE: No History of Uncontrolled Diabetes: No Urinary Catheter: No History of Decub. Ulcer: No History Surgical Site Infection Following: None - Disposition
[2018-11-19] MEDS ORDERED: Vancomycin 1gm in NS 250ml 1 GM/250 ML BAG IVPB STA (20:52)
[2018-11-19 21:51] LABS: BASO # 0.01 K/mm3 (0.0-2.0); BASO % 0.2 % (0.0-3.0); EOS # 0.1 (0.0-0.7); EOS % 2.1 % (1.5-5.0); HEMOGLOBIN 12.2 g/dL (14.0-18.0); LYMPH # 1.2 (1.2-3.4); MEAN CELL VOLUME 89.4 fl (80.0-105.0); MEAN CORPUSCULAR HEMOGLOBIN 30.9 pg (25.0-35.0); MEAN CORPUSCULAR HGB CONC 34.6 g/dl (31.0-37.0); MEAN PLATELET VOLUME 10.7 fl (7.0-11.0); MONO # 0.4 (0.1-0.6); MONO % 6.2 % (1.0-6.0); RBC 3.95 10^6/uL (3.5-6.1); WHITE BLOOD COUNT 5.6 10^3/uL (4.5-11.0)
[2018-11-19] MEDS ORDERED: Piperacillin/Tazobact 3.375 gm 100 ML IVPB STA (21:58)
[2018-11-19] MEDS ORDERED: Vancomycin 1gm in NS 250ml 1 GM/250 ML BAG IVPB SCH (22:00)
[2018-11-19 22:01] LABS: ALB/GLOB RATIO 0.9 (1.1-1.8); ALBUMIN 3.8 g/dL (3.0-4.8); ALT/SGPT 86 U/L (7-56); AST/SGOT 123 U/L (17-59); BLOOD UREA NITROGEN 16 mg/dL (7-21); CALCIUM 8.7 mg/dL (8.4-10.5); GFR NON-AFRICAN AMERICAN > 60
--- NOTE | 2018-11-19 22:51 | CP.PCM.HP ---
<Hanna Luna - Last Filed: 11/20/18 04:05> History of Present Illness - History of Present Illness History of Present Illness: HISTORY & PHYSICAL NOTE FOR HOSPITALIST SERVICE HANNA LUNA PGY1 47y/o M with PMH of Hep C and IVDA presents to ED with complaints of painful R forearm abscess that he noticed a few days ago. He reports he injected heroin in his R forearm about a week ago and noticed redness, swelling & pain a few days after. He had switched to his left arm for IV drug use d/t the swelling. He reports using ~3 bags heroin every days consistently. He denies any recent trauma to the area. He has full sensation and strength in the RUE however it is painful with movement. He reports subjectives fevers, however denies chills, headache, dizziness, numbness, tingling, chest pain, palpitations, shortness of breath, nausea, vomiting, constipation, diarrhea, dysuria. PMH: Hepatitis C, IVDA All: NKDA PSH: tonsillectomy- 9yrs ago, Appendectomy- 9yrs ago SH: Heroin IV, 3 bags daily. Cigarettes occasionally. No ETOH. Lives in [place] Hosp: Denies recent hosp FH: M: none. Father: : liver failure Meds: none PMD: Dr. Elidia Lieberman Present on Admission - Present on Admission Any Indicators Present on Admission: No Review of Systems - Review of Systems Review of Systems: per HPI Past Patient History - Infectious Disease Hx of Infectious Diseases: None - Past Social History Smoking Status: Light Smoker < 10 Cigarettes Daily - CARDIAC Hx Cardiac Disorders: No - PULMONARY Hx Respiratory Disorders: No - NEUROLOGICAL Hx Neurological Disorder: No - HEENT Hx HEENT Problems: No - RENAL Hx Chronic Kidney Disease: No - ENDOCRINE/METABOLIC Hx Endocrine Disorders: No - HEMATOLOGICAL/ONCOLOGICAL Hx Blood Disorders: No Hx Hepatitis C: Yes - INTEGUMENTARY Hx Dermatological Problems: No - MUSCULOSKELETAL/RHEUMATOLOGICAL Hx Musculoskeletal Disorders: No - GASTROINTESTINAL Other/Comment: ABD PAIN - GENITOURINARY/GYNECOLOGICAL Hx Genitourinary Disorders: No - PSYCHIATRIC Hx Psychophysiologic Disorder: No Hx Substance Use: Yes (ADMITS TO USING IV HEROINE 11/18) - SURGICAL HISTORY Hx Appendectomy: Yes Hx Cholecystectomy: Yes Hx Tonsillectomy: Yes - ANESTHESIA Hx Anesthesia: Yes Hx Anesthesia Reactions: No Hx Malignant Hyperthermia: No Meds Allergies/Adverse Reactions: Allergies Allergy/AdvReac Type Severity Reaction Status Date / Time No Known Allergies Allergy Verified 04/18/18 08:15 Physical Exam - Constitutional Appears: Well, No Acute Distress - Head Exam Head Exam: NORMAL INSPECTION, NORMOCEPHALIC - Eye Exam Eye Exam: EOMI, Normal appearance, PERRL - ENT Exam ENT Exam: Mucous Membranes Moist, Normal Exam - Neck Exam Neck exam: Positive for: Normal Inspection. Negative for: Meningismus - Respiratory Exam Respiratory Exam: Clear to Auscultation Bilateral, NORMAL BREATHING PATTERN - Cardiovascular Exam Cardiovascular Exam: REGULAR RHYTHM, +S1, +S2 - GI/Abdominal Exam GI & Abdominal Exam: Soft. absent: Tenderness - Extremities Exam Extremities exam: Positive for: normal inspection Additional comments: healed eschar ortiz in anterior tibial region bilaterally - Back Exam Back exam: NORMAL INSPECTION - Neurological Exam Neurological exam: Alert, Oriented x3 - Psychiatric Exam Psychiatric exam: Normal Affect, Normal Mood - Skin Additional comments: R antecubital fossa abscess ~[id number], indurated, fluctuant, No purulence discharge. 2 small needle insertion sites noted. No foreign body seen Decreased ROM d/t pain Results - Vital Signs Recent Vital Signs: Last Vital Signs Temp 98.9 F 11/19/18 20:27 Pulse 83 11/19/18 20:27 Resp 18 11/19/18 20:27 BP 112/66 11/19/18 20:27 Pulse Ox 100 11/19/18 20:27 - Labs Result Diagrams: 11/19/18 21:30 11/19/18 21:30 Labs: Laboratory Results - last 24 hr 11/19/18 11/19/18 21:30 21:30 WBC 5.6 RBC 3.95 Hgb 12.2 L Hct 35.3 L MCV 89.4 MCH 30.9 MCHC 34.6 RDW 14.0 Plt Count 75 L MPV 10.7 Neut % (Auto) 70.5 H Lymph % (Auto) 21.0 L Dundy % (Auto) 6.2 H Eos % (Auto) 2.1 Baso % (Auto) 0.2 Lymph # (Auto) 1.2 Dundy # (Auto) 0.4 Eos # (Auto) 0.1 Baso # (Auto) 0.01 Absolute Neuts (auto) 3.97 Sodium 137 Potassium 4.0 Chloride 101 Carbon Dioxide 27 Anion Gap 13 BUN 16 Creatinine 0.8 Est GFR ( Amer) > 60 Est GFR (Non-Af Amer) > 60 Random Glucose 92 Calcium 8.7 Total Bilirubin 1.2 AST 123 H ALT 86 H Alkaline Phosphatase 112 Total Protein 8.1 Albumin 3.8 Globulin 4.3 Albumin/Globulin Ratio 0.9 L Assessment & Plan - Assessment and Plan (Free Text) Assessment: 47 y/o M with PMH of IVDA, Hep C admitted for R antecubital fossa cellulitis/abscess Plan: R antecubital fossa abscess/cellulitis -s/p 1gm Vancomycin, in ED -start zosyn -continue vancomycin/zosyn -surgery consulted. recs appreciated. plans for bedside I&D -f/u wound culture/blood cultre -ID consulted, appreciate recs Hx of hepatitis C -denies history of treatment -hepatitis panel ordered, HIV 1/2 Ab ordered -will need to f/u with ID in outpatient setting -f/u UDS IVDA -counselled on cessation -monitor for heroin w/d -avoid opiate analgesics DVT/GI PPx: SCD/pepcid Case reviewed with attending physician, Dr. Adilene Luna PGY1 <Christina Head - Last Filed: 11/20/18 05:43> Results - Vital Signs Recent Vital Signs: Last Vital Signs Temp 98.9 F 11/19/18 20:27 Pulse 85 11/19/18 23:30 Resp 20 11/20/18 01:50 BP 118/73 11/19/18 23:30 Pulse Ox 100 11/19/18 23:30 - Labs Result Diagrams: 11/19/18 21:30 11/19/18 21:30 Labs: Laboratory Results - last 24 hr 11/19/18 11/19/18 11/19/18 21:30 21:30 21:30 WBC 5.6 RBC 3.95 Hgb 12.2 L Hct 35.3 L MCV 89.4 MCH 30.9 MCHC 34.6 RDW 14.0 Plt Count 75 L MPV 10.7 Neut % (Auto) 70.5 H Lymph % (Auto) 21.0 L Dundy % (Auto) 6.2 H Eos % (Auto) 2.1 Baso % (Auto) 0.2 Lymph # (Auto) 1.2 Dundy # (Auto) 0.4 Eos # (Auto) 0.1 Baso # (Auto) 0.01 Absolute Neuts (auto) 3.97 Sodium 137 Potassium 4.0 Chloride 101 Carbon Dioxide 27 Anion Gap 13 BUN 16 Creatinine 0.8 Est GFR ( Amer) > 60 Est GFR (Non-Af Amer) > 60 Random Glucose 92 Calcium 8.7 Magnesium 1.8 Total Bilirubin 1.2 AST 123 H ALT 86 H Alkaline Phosphatase 112 Total Protein 8.1 Albumin 3.8 Globulin 4.3 Albumin/Globulin Ratio 0.9 L Attending/Attestation - Attestation I have personally seen and examined this patient.: Yes I have fully participated in the care of the patient.: Yes I have reviewed all pertinent clinical information: Yes Notes (Text): 11/20/18 05:43 Seen and examined. Discussed with resident. exam significant for R. antecubital abscess + cellulitis.
--- NOTE | 2018-11-19 23:29 | CP.PCM.CON ---
History of Present Illness - History of Present Illness History of Present Illness: General Surgery Dr. Gonzalez 47 y/o M w/ PMHx IVDA, Hep C, HTN presents to the ED c/o R forearm abscess. Pt reports last injection ~2weeks ago in that area. Pt denies possible retained needle tip. Pt states swelling started ~2days [employer] and has rapidly worsened. Pt has never before had this. Pt admits to subjective fevers but denies chills, nausea, vomiting, anorexia, decreased ROM. PMHx: see above Meds: reviewed in chart NKDA PSHx: T&A, appendectomy SHx: heroine and cocaine use; occaional tobacco and EtOH use FHx: noncontributory Review of Systems - Review of Systems All systems: reviewed and no additional remarkable complaints except (see HPI) Past Patient History - Infectious Disease Hx of Infectious Diseases: None - Past Social History Smoking Status: Light Smoker < 10 Cigarettes Daily - CARDIAC Hx Cardiac Disorders: No - PULMONARY Hx Respiratory Disorders: No - NEUROLOGICAL Hx Neurological Disorder: No - HEENT Hx HEENT Problems: No - RENAL Hx Chronic Kidney Disease: No - ENDOCRINE/METABOLIC Hx Endocrine Disorders: No - HEMATOLOGICAL/ONCOLOGICAL Hx Blood Disorders: No Hx Hepatitis C: Yes - INTEGUMENTARY Hx Dermatological Problems: No - MUSCULOSKELETAL/RHEUMATOLOGICAL Hx Musculoskeletal Disorders: No - GASTROINTESTINAL Other/Comment: ABD PAIN - GENITOURINARY/GYNECOLOGICAL Hx Genitourinary Disorders: No - PSYCHIATRIC Hx Psychophysiologic Disorder: No Hx Substance Use: Yes (ADMITS TO USING IV HEROINE 11/18) - SURGICAL HISTORY Hx Appendectomy: Yes Hx Cholecystectomy: Yes Hx Tonsillectomy: Yes - ANESTHESIA Hx Anesthesia: Yes Hx Anesthesia Reactions: No Hx Malignant Hyperthermia: No Meds Allergies/Adverse Reactions: Allergies Allergy/AdvReac Type Severity Reaction Status Date / Time No Known Allergies Allergy Verified 04/18/18 08:15 - Medications Medications: Current Medications Vancomycin HCl (Vancomycin 1gm) 1 gm in 250 mls @ 167 mls/hr IVPB Q12H [facility]; Protocol Piperacillin Sod/Tazobactam Sod (Zosyn 3.375 In Ns 100ml) 100 mls @ 25 mls/hr IVPB Q12 [facility]; Protocol Stop: 11/20/18 13:59 Physical Exam - Constitutional Appears: Non-toxic, No Acute Distress - Head Exam Head Exam: NORMAL INSPECTION - Eye Exam Eye Exam: Normal appearance - ENT Exam ENT Exam: Mucous Membranes Moist - Respiratory Exam Respiratory Exam: NORMAL BREATHING PATTERN. absent: Accessory Muscle Use, Respiratory Distress - Cardiovascular Exam Cardiovascular Exam: absent: Bradycardia, Tachycardia - GI/Abdominal Exam GI & Abdominal Exam: Soft. absent: Distended, Tenderness - Extremities Exam Additional comments: Right forearm w/ AC abscess and surrounding cellulitis (+) induration, fluctuance, erythema (-) decreased ROM epitrochlear lymphadenopathy - Neurological Exam Neurological exam: Alert, Oriented x3 - Psychiatric Exam Psychiatric exam: Normal Affect, Normal Mood - Skin Skin Exam: Dry, Intact, Warm Results - Vital Signs Recent Vital Signs: Last Vital Signs Temp 98.9 F 11/19/18 20:27 Pulse 83 11/19/18 20:27 Resp 18 11/19/18 20:27 BP 112/66 11/19/18 20:27 Pulse Ox 100 11/19/18 20:27 - Labs Result Diagrams: 11/19/18 21:30 11/19/18 21:30 Labs: Laboratory Results - last 24 hr 11/19/18 11/19/18 11/19/18 21:30 21:30 21:30 WBC 5.6 RBC 3.95 Hgb 12.2 L Hct 35.3 L MCV 89.4 MCH 30.9 MCHC 34.6 RDW 14.0 Plt Count 75 L MPV 10.7 Neut % (Auto) 70.5 H Lymph % (Auto) 21.0 L Harlan % (Auto) 6.2 H Eos % (Auto) 2.1 Baso % (Auto) 0.2 Lymph # (Auto) 1.2 Harlan # (Auto) 0.4 Eos # (Auto) 0.1 Baso # (Auto) 0.01 Absolute Neuts (auto) 3.97 Sodium 137 Potassium 4.0 Chloride 101 Carbon Dioxide 27 Anion Gap 13 BUN 16 Creatinine 0.8 Est GFR ( Amer) > 60 Est GFR (Non-Af Amer) > 60 Random Glucose 92 Calcium 8.7 Magnesium 1.8 Total Bilirubin 1.2 AST 123 H ALT 86 H Alkaline Phosphatase 112 Total Protein 8.1 Albumin 3.8 Globulin 4.3 Albumin/Globulin Ratio 0.9 L - Imaging and Cardiology L arm x-ray Status: Pending Assessment & Plan - Assessment and Plan (Free Text) Assessment: 47 y/o M w/ R forearm abscess 2/2 IVDA Plan: - plan for bedside I&D - f/u wound Cx - IV Abx per ID - non-narcotic pain management - monitor for heroine/cocaine w/drawl Pt discussed w/ Dr. Carlos Garcia PGY3
[2018-11-19] MEDS ORDERED: Lidocaine/Prilocaine 2.5%-2.5% Cream(30 gm) TOP ONE (23:33)
[2018-11-19] MEDS ORDERED: Lidocaine 1% Inj (20ml) IJ STA (23:33)
[2018-11-19] MEDS ORDERED: Lidocaine/Prilocaine 2.5%-2.5% Cream (5 gm) TOP ONE (23:45)
[2018-11-20] MEDS ORDERED: Oxycodone/Acetaminophen 5/325 mg Tab PO STA (00:43)
--- NOTE | 2018-11-20 00:47 | PCM.PROC ---
Incision and Drainage - Time Time Performed: 00:15 - Time Out Time Out: Side verified, Site verified, Patient ID confirmed, Sterile procedures obs. (clean-contaminated) - Procedure Procedure-Incision & Drainage: Right forearm abscess - Consent obtained Consent obtained: Verbal - Performed by Performed by: Mid-level Provider (Siri Garcia PGY3) - Indications Indications: Cutaneous abscess - Contraindications Contraindications: Thrombocytopenia - Location Location: Right, Antecubital - Anesthetic Technique Anesthetic Technique: Topical, Local - Anesthetic Anesthetic: Lidocaine 1%, EMLA - Systemic Analgesia Systemic Analgesia: Other (Percocet) - Procedure Procedure: Usual prep and drape, cm incision (1), Overlying area fluctuance, # scalpel used (15), Explored for loculations - Drained Drained: ml pus (3) - Post-procedure Post procedure: Dressed - Complications Complications: None - Patient tolerated procedure Patient tolerated procedure: Well Addendum Addendum: 11/20/18 00:51 wound culture obtained and sent to lab
[2018-11-20] MEDS ORDERED: Pneumococcal 23-Valent Vaccine IM ONE (01:42)
[2018-11-20] MEDS ORDERED: Sodium Chloride 0.9% 1,000 ML IV SCH (03:15)
[2018-11-20 06:47] LABS: URINE BILIRUBIN NEGATIVE (NEGATIVE); URINE BLOOD NEGATIVE (NEGATIVE); URINE GLUCOSE (UA) NEGATIVE (NEGATIVE); URINE LEUKOCYTE ESTERASE NEGATIVE Leu/uL (NEGATIVE); URINE PROTEIN NEGATIVE mg/dL (<30 mg/dL); URINE UROBILINOGEN 0.2 E.U./dL (<1 E.U./dL)
[2018-11-20 06:50] LABS: URINE APPEARANCE CLEAR (CLEAR); URINE COLOR YELLOW (YELLOW)
[2018-11-20 07:08] LABS: BASO # 0.01 K/mm3 (0.0-2.0); BASO % 0.3 % (0.0-3.0); EOS # 0.1 (0.0-0.7); EOS % 4.1 % (1.5-5.0); HEMOGLOBIN 10.5 g/dL (14.0-18.0); LYMPH # 0.8 (1.2-3.4); LYMPH % 24.1 % (22.0-35.0); MEAN CELL VOLUME 89.6 fl (80.0-105.0); MEAN CORPUSCULAR HEMOGLOBIN 30.3 pg (25.0-35.0); MEAN CORPUSCULAR HGB CONC 33.9 g/dl (31.0-37.0); MEAN PLATELET VOLUME 11.3 fl (7.0-11.0); MONO # 0.3 (0.1-0.6); MONO % 9.8 % (1.0-6.0); RBC 3.46 10^6/uL (3.5-6.1); RED CELL DISTRIBUTION WIDTH 14.1 % (11.5-14.5); WHITE BLOOD COUNT 3.2 10^3/uL (4.5-11.0)
[2018-11-20 07:27] LABS: ALB/GLOB RATIO 0.8 (1.1-1.8); ALBUMIN 2.9 g/dL (3.0-4.8); ALT/SGPT 85 U/L (7-56); AST/SGOT 103 U/L (17-59); BLOOD UREA NITROGEN 18 mg/dL (7-21); GFR NON-AFRICAN AMERICAN > 60
[2018-11-20 07:52] VITALS: BP 108/67; PULSE 59; RESP 18; TEMP 98.4; O2SAT 98
[2018-11-20] MEDS ORDERED: Piperacillin/Tazobact 3.375 gm 100 ML IVPB SCH (10:00)
[2018-11-20] MEDS ORDERED: Vancomycin 1gm in NS 250ml 1 GM/250 ML BAG IVPB SCH ×2 (10:00→22:00)
--- NOTE | 2018-11-20 10:28 | RAD ---
PROCEDURE: Radiographs of the Right Forearm HISTORY: R/O FB COMPARISON: None available. TECHNIQUE: Frontal and lateral views obtained. 2 views obtained. FINDINGS: BONES: No fracture or destructive lesion. There is endosteal sclerosis of the mid ulnar shaft. No pathological fracture seen. No periosteal reaction or cortical destruction noted. JOINT SPACES: Unremarkable. OTHER FINDINGS: On series 1, image 1 frontal view there is a relative radiolucency projecting over the ulnar side of the elbow clinical correlation with any gross soft tissue laceration or pathology here. No radiopaque foreign bodies appreciated. IMPRESSION: No radiopaque foreign body seen. No aggressive or lytic appearing osseous pathology noted. No fracture gross dislocation appreciated Soft tissue appearance/changes for which clinical correlation is needed-as above.
--- NOTE | 2018-11-20 10:43 | CP.PCM.CON ---
<Brody Vale - Last Filed: 11/20/18 13:15> History of Present Illness - History of Present Illness History of Present Illness: Infectious disease consult note: 47-year-old male with past medical history of hepatitis C and IV drug abuse presents to the hospital with complaints of right forearm pain and abscess. Patient admits to injecting heroin approximately 3 bags a day for the past 15 years. About a week ago he noticed some erythema and edema accompanied with tenderness. This got progressively worse and decided to come to the emergency room. He does report of subjective fever however denies any chills. Infectious disease was consulted for right forearm abscess and cellulitis. 12 point ROS performed and negative other than stated above PMH: As above PSH: Tonsillectomy, and appendectomy Allergies: No known drug allergies SH: IV drug abuse with heroin, social cigarette smoker and denies any alcohol use FH: Father with liver disease Review of Systems - Review of Systems All systems: reviewed and no additional remarkable complaints except Past Patient History - Infectious Disease Hx of Infectious Diseases: None - Past Social History Smoking Status: Light Smoker < 10 Cigarettes Daily - CARDIAC Hx Cardiac Disorders: No - PULMONARY Hx Respiratory Disorders: No - NEUROLOGICAL Hx Neurological Disorder: No - HEENT Hx HEENT Problems: No - RENAL Hx Chronic Kidney Disease: No - ENDOCRINE/METABOLIC Hx Endocrine Disorders: No - HEMATOLOGICAL/ONCOLOGICAL Hx Blood Disorders: No Hx Hepatitis C: Yes - INTEGUMENTARY Hx Dermatological Problems: No - MUSCULOSKELETAL/RHEUMATOLOGICAL Hx Musculoskeletal Disorders: No - GASTROINTESTINAL Other/Comment: ABD PAIN - GENITOURINARY/GYNECOLOGICAL Hx Genitourinary Disorders: No - PSYCHIATRIC Hx Psychophysiologic Disorder: No Hx Substance Use: Yes (ADMITS TO USING IV HEROINE 11/18) - SURGICAL HISTORY Hx Appendectomy: Yes Hx Cholecystectomy: Yes Hx Tonsillectomy: Yes - ANESTHESIA Hx Anesthesia: Yes Hx Anesthesia Reactions: No Hx Malignant Hyperthermia: No Meds Allergies/Adverse Reactions: Allergies Allergy/AdvReac Type Severity Reaction Status Date / Time No Known Allergies Allergy Verified 04/18/18 08:15 - Medications Medications: Current Medications Famotidine (Pepcid) 20 mg PO 1000,2200 [facility] Last Admin: 11/20/18 09:09 Dose: 20 mg Vancomycin HCl (Vancomycin 1gm) 1 gm in 250 mls @ 167 mls/hr IVPB Q12H [facility]; Protocol Last Admin: 11/20/18 09:08 Dose: 167 mls/hr Sodium Chloride (Sodium Chloride 0.9%) 1,000 mls @ 100 mls/hr IV .Q10H [facility]NA Last Admin: 11/20/18 03:57 Dose: 100 mls/hr Piperacillin Sod/Tazobactam Sod (Zosyn 4.5 Gm In Ns 100ml) 4.5 gm in 100 mls @ 25 mls/hr IVPB Q8 [facility]; Protocol Stop: 11/29/18 14:01 Physical Exam - Head Exam Head Exam: ATRAUMATIC, NORMOCEPHALIC - Eye Exam Eye Exam: EOMI, PERRL - ENT Exam ENT Exam: Mucous Membranes Moist - Respiratory Exam Respiratory Exam: Clear to Auscultation Bilateral. absent: Wheezes - Cardiovascular Exam Cardiovascular Exam: REGULAR RHYTHM, +S1, +S2 - GI/Abdominal Exam GI & Abdominal Exam: Normal Bowel Sounds, Soft. absent: Tenderness - Extremities Exam Extremities exam: Negative for: calf tenderness, pedal edema - Neurological Exam Neurological exam: Alert, Oriented x3 - Psychiatric Exam Psychiatric exam: Normal Mood - Skin Skin Exam: Dry, Warm Additional comments: Right forearm: Anterior aspect of the right forearm with large purulent draining abscess with surrounding erythema and edema, S/P I&D Results - Vital Signs Recent Vital Signs: Last Vital Signs Temp 98.4 F 11/20/18 06:00 Pulse 59 L 11/20/18 06:00 Resp 18 11/20/18 06:00 BP 108/67 11/20/18 06:00 Pulse Ox 98 11/20/18 06:00 - Labs Result Diagrams: 11/20/18 06:40 11/20/18 06:40 Labs: Laboratory Results - last 24 hr 11/19/18 11/19/18 11/19/18 21:30 21:30 21:30 WBC 5.6 RBC 3.95 Hgb 12.2 L Hct 35.3 L MCV 89.4 MCH 30.9 MCHC 34.6 RDW 14.0 Plt Count 75 L MPV 10.7 Neut % (Auto) 70.5 H Lymph % (Auto) 21.0 L Ida % (Auto) 6.2 H Eos % (Auto) 2.1 Baso % (Auto) 0.2 Lymph # (Auto) 1.2 Ida # (Auto) 0.4 Eos # (Auto) 0.1 Baso # (Auto) 0.01 Absolute Neuts (auto) 3.97 Sodium 137 Potassium 4.0 Chloride 101 Carbon Dioxide 27 Anion Gap 13 BUN 16 Creatinine 0.8 Est GFR ( Amer) > 60 Est GFR (Non-Af Amer) > 60 Random Glucose 92 Calcium 8.7 Phosphorus Magnesium 1.8 Total Bilirubin 1.2 AST 123 H ALT 86 H Alkaline Phosphatase 112 Total Protein 8.1 Albumin 3.8 Globulin 4.3 Albumin/Globulin Ratio 0.9 L Urine Color Urine Appearance Urine pH Ur Specific Russell Urine Protein Urine Glucose (UA) Urine Ketones Urine Blood Urine Nitrate Urine Bilirubin Urine Urobilinogen Ur Leukocyte Esterase 11/20/18 11/20/18 11/20/18 06:38 06:40 06:40 WBC 3.2 L D RBC 3.46 L Hgb 10.5 L Hct 31.0 L MCV 89.6 MCH 30.3 MCHC 33.9 RDW 14.1 Plt Count 57 L MPV 11.3 H Neut % (Auto) 61.7 Lymph % (Auto) 24.1 Ida % (Auto) 9.8 H Eos % (Auto) 4.1 Baso % (Auto) 0.3 Lymph # (Auto) 0.8 L Ida # (Auto) 0.3 Eos # (Auto) 0.1 Baso # (Auto) 0.01 Absolute Neuts (auto) 1.94 Sodium 135 Potassium 4.1 Chloride 103 Carbon Dioxide 26 Anion Gap 10 BUN 18 Creatinine 0.6 L Est GFR ( Amer) > 60 Est GFR (Non-Af Amer) > 60 Random Glucose 99 Calcium 8.0 L Phosphorus 4.2 Magnesium 1.8 Total Bilirubin 0.9 AST 103 H ALT 85 H Alkaline Phosphatase 108 Total Protein 6.5 Albumin 2.9 L Globulin 3.6 Albumin/Globulin Ratio 0.8 L Urine Color Yellow Urine Appearance Clear Urine pH 6.0 Ur Specific Russell 1.025 Urine Protein Negative Urine Glucose (UA) Negative Urine Ketones Negative Urine Blood Negative Urine Nitrate Negative Urine Bilirubin Negative Urine Urobilinogen 0.2 Ur Leukocyte Esterase Negative Assessment & Plan - Assessment and Plan (Free Text) Assessment: Right forearm abscess with surrounding cellulitis S/P I&D IV drug abuse Hepatitis C Patient was started on Vanco and Zosyn. We will continue Forearm x-ray shows no osteomyelitis Follow-up HIV Follow-up ESR, CRP, and procalcitonin Follow-up septic work-up including wound culture Follow-up surgery for further recommendations Continue monitor for any changes Case and plan to be reviewed and discussed with Dr. Ji <Lee Ji - Last Filed: 11/20/18 16:02> Meds - Medications Medications: Current Medications Famotidine (Pepcid) 20 mg PO 1000,2200 [facility] Last Admin: 11/20/18 09:09 Dose: 20 mg Vancomycin HCl (Vancomycin 1gm) 1 gm in 250 mls @ 167 mls/hr IVPB Q12H [facility]; Protocol Last Admin: 11/20/18 09:08 Dose: 167 mls/hr Sodium Chloride (Sodium Chloride 0.9%) 1,000 mls @ 100 mls/hr IV .Q10H [facility] Last Admin: 11/20/18 03:57 Dose: 100 mls/hr Piperacillin Sod/Tazobactam Sod (Zosyn 4.5 Gm In Ns 100ml) 4.5 gm in 100 mls @ 25 mls/hr IVPB Q8 [facility]; Protocol Stop: 11/29/18 14:01 Last Admin: 11/20/18 13:32 Dose: 25 mls/hr Results - Vital Signs Recent Vital Signs: Last Vital Signs Temp 98.4 F 11/20/18 06:00 Pulse 59 L 11/20/18 06:00 Resp 18 11/20/18 06:00 BP 108/67 11/20/18 06:00 Pulse Ox 98 11/20/18 06:00 - Labs Result Diagrams: 11/20/18 06:40 11/20/18 06:40 Labs: Laboratory Results - last 24 hr 11/19/18 11/19/18 11/19/18 21:30 21:30 21:30 WBC 5.6 RBC 3.95 Hgb 12.2 L Hct 35.3 L MCV 89.4 MCH 30.9 MCHC 34.6 RDW 14.0 Plt Count 75 L MPV 10.7 Neut % (Auto) 70.5 H Lymph % (Auto) 21.0 L Ida % (Auto) 6.2 H Eos % (Auto) 2.1 Baso % (Auto) 0.2 Lymph # (Auto) 1.2 Ida # (Auto) 0.4 Eos # (Auto) 0.1 Baso # (Auto) 0.01 Absolute Neuts (auto) 3.97 ESR Sodium 137 Potassium 4.0 Chloride 101 Carbon Dioxide 27 Anion Gap 13 BUN 16 Creatinine 0.8 Est GFR ( Amer) > 60 Est GFR (Non-Af Amer) > 60 Random Glucose 92 Calcium 8.7 Phosphorus Magnesium 1.8 Total Bilirubin 1.2 AST 123 H ALT 86 H Alkaline Phosphatase 112 Total Protein 8.1 Albumin 3.8 Globulin 4.3 Albumin/Globulin Ratio 0.9 L Urine Color Urine Appearance Urine pH Ur Specific Russell Urine Protein Urine Glucose (UA) Urine Ketones Urine Blood Urine Nitrate Urine Bilirubin Urine Urobilinogen Ur Leukocyte Esterase 11/20/18 11/20/18 11/20/18 06:38 06:40 06:40 WBC 3.2 L D RBC 3.46 L Hgb 10.5 L Hct 31.0 L MCV 89.6 MCH 30.3 MCHC 33.9 RDW 14.1 Plt Count 57 L MPV 11.3 H Neut % (Auto) 61.7 Lymph % (Auto) 24.1 Ida % (Auto) 9.8 H Eos % (Auto) 4.1 Baso % (Auto) 0.3 Lymph # (Auto) 0.8 L Ida # (Auto) 0.3 Eos # (Auto) 0.1 Baso # (Auto) 0.01 Absolute Neuts (auto) 1.94 ESR Sodium 135 Potassium 4.1 Chloride 103 Carbon Dioxide 26 Anion Gap 10 BUN 18 Creatinine 0.6 L Est GFR ( Amer) > 60 Est GFR (Non-Af Amer) > 60 Random Glucose 99 Calcium 8.0 L Phosphorus 4.2 Magnesium 1.8 Total Bilirubin 0.9 AST 103 H ALT 85 H Alkaline Phosphatase 108 Total Protein 6.5 Albumin 2.9 L Globulin 3.6 Albumin/Globulin Ratio 0.8 L Urine Color Yellow Urine Appearance Clear Urine pH 6.0 Ur Specific Russell 1.025 Urine Protein Negative Urine Glucose (UA) Negative Urine Ketones Negative Urine Blood Negative Urine Nitrate Negative Urine Bilirubin Negative Urine Urobilinogen 0.2 Ur Leukocyte Esterase Negative 11/20/18 10:45 WBC RBC Hgb Hct MCV MCH MCHC RDW Plt Count MPV Neut % (Auto) Lymph % (Auto) Ida % (Auto) Eos % (Auto) Baso % (Auto) Lymph # (Auto) Ida # (Auto) Eos # (Auto) Baso # (Auto) Absolute Neuts (auto) ESR 21 H Sodium Potassium Chloride Carbon Dioxide Anion Gap BUN Creatinine Est GFR ( Amer) Est GFR (Non-Af Amer) Random Glucose Calcium Phosphorus Magnesium Total Bilirubin AST ALT Alkaline Phosphatase Total Protein Albumin Globulin Albumin/Globulin Ratio Urine Color Urine Appearance Urine pH Ur Specific Russell Urine Protein Urine Glucose (UA) Urine Ketones Urine Blood Urine Nitrate Urine Bilirubin Urine Urobilinogen Ur Leukocyte Esterase Attending/Attestation - Attestation I have personally seen and examined this patient.: Yes I have fully participated in the care of the patient.: Yes I have reviewed all pertinent clinical information: Yes
[2018-11-20] MEDS ORDERED: Piperacill/Tazo 4.5gm in NS 4.5 GM/100 ML BAG IVPB SCH (14:00)
--- NOTE | 2018-11-21 15:29 | CP.PCM.DIS ---
<Adi Loaiza - Last Filed: 11/21/18 15:31> Provider - Provider Date of Admission: 11/19/18 21:34 Attending physician: Mimi Hazel MD Primary care physician: Elidia Lieberman DO Consults: 11/19/18 22:21 Infectious Disease Consult Routine Comment: Consulting Provider: Lee Ji Consulting Physician: Lee Ji Reason for Consult: R & L forearm abscess/cellulitis, R>L. IVDA, HepC 11/19/18 22:59 General Surgery Consult Routine Comment: Consulting Provider: Caro Gonzalez Consulting Physician: Caro Gonzalez Reason for Consult: R forearm abscess, IVDA, Hep C 11/20/18 11:47 Case Management Referral Routine Comment: Physician Instructions: Reason For Exam: Reason for Referral: Dye Stand Loader Eval Time Spent in preparation of Discharge (in minutes): 25 Hospital Course - Lab Results Lab Results: Micro Results 11/20/18 00:49 Abscess - Arm-Left Gram Stain - Final 11/20/18 00:49 Abscess - Arm-Left Wound Culture - Preliminary Gram Positive Cocci 11/19/18 21:30 Blood-Venous Blood Culture - Preliminary NO GROWTH AFTER 24 HOURS 11/19/18 21:15 Blood-Venous Blood Culture - Preliminary NO GROWTH AFTER 24 HOURS Most Recent Lab Values WBC 3.2 10^3/uL (4.5-11.0) L D 11/20/18 06:40 RBC 3.46 10^6/uL (3.5-6.1) L 11/20/18 06:40 Hgb 10.5 g/dL (14.0-18.0) L 11/20/18 06:40 Hct 31.0 % (42.0-52.0) L 11/20/18 06:40 MCV 89.6 fl (80.0-105.0) 11/20/18 06:40 MCH 30.3 pg (25.0-35.0) 11/20/18 06:40 MCHC 33.9 g/dl (31.0-37.0) 11/20/18 06:40 RDW 14.1 % (11.5-14.5) 11/20/18 06:40 Plt Count 57 10^3/uL (120.0-450.0) L 11/20/18 06:40 MPV 11.3 fl (7.0-11.0) H 11/20/18 06:40 Neut % (Auto) 61.7 % (50.0-68.0) 11/20/18 06:40 Lymph % (Auto) 24.1 % (22.0-35.0) 11/20/18 06:40 Day % (Auto) 9.8 % (1.0-6.0) H 11/20/18 06:40 Eos % (Auto) 4.1 % (1.5-5.0) 11/20/18 06:40 Baso % (Auto) 0.3 % (0.0-3.0) 11/20/18 06:40 Lymph # (Auto) 0.8 (1.2-3.4) L 11/20/18 06:40 Day # (Auto) 0.3 (0.1-0.6) 11/20/18 06:40 Eos # (Auto) 0.1 (0.0-0.7) 11/20/18 06:40 Baso # (Auto) 0.01 K/mm3 (0.0-2.0) 11/20/18 06:40 Absolute Neuts (auto) 1.94 (1.4-6.5) 11/20/18 06:40 ESR 21 mm/hr (0.0-15.0) H 11/20/18 10:45 Sodium 135 mmol/L (132-148) 11/20/18 06:40 Potassium 4.1 mmol/L (3.6-5.0) 11/20/18 06:40 Chloride 103 mmol/L (98-107) 11/20/18 06:40 Carbon Dioxide 26 mmol/L (21-33) 11/20/18 06:40 Anion Gap 10 (10-20) 11/20/18 06:40 BUN 18 mg/dL (7-21) 11/20/18 06:40 Creatinine 0.6 mg/dl (0.8-1.5) L 11/20/18 06:40 Est GFR ( Amer) > 60 11/20/18 06:40 Est GFR (Non-Af Amer) > 60 11/20/18 06:40 Random Glucose 99 mg/dL (70-110) 11/20/18 06:40 Calcium 8.0 mg/dL (8.4-10.5) L 11/20/18 06:40 Phosphorus 4.2 mg/dL (2.5-4.5) 11/20/18 06:40 Magnesium 1.8 mg/dL (1.7-2.2) 11/20/18 06:40 Total Bilirubin 0.9 mg/dL (0.2-1.3) 11/20/18 06:40 AST 103 U/L (17-59) H 11/20/18 06:40 ALT 85 U/L (7-56) H 11/20/18 06:40 Alkaline Phosphatase 108 U/L (38-126) 11/20/18 06:40 C-Reactive Protein 27.70 mg/L (0.0-9.9) H 11/20/18 10:45 Total Protein 6.5 g/dL (5.8-8.3) 11/20/18 06:40 Albumin 2.9 g/dL (3.0-4.8) L 11/20/18 06:40 Globulin 3.6 gm/dL 11/20/18 06:40 Albumin/Globulin Ratio 0.8 (1.1-1.8) L 11/20/18 06:40 Procalcitonin 0.14 NG/ML (0.19-0.49) L 11/20/18 10:45 Urine Color Yellow (YELLOW) 11/20/18 06:38 Urine Appearance Clear (CLEAR) 11/20/18 06:38 Urine pH 6.0 (4.7-8.0) 11/20/18 06:38 Ur Specific [place] 1.025 (1.005-1.035) 11/20/18 06:38 Urine Protein Negative mg/dL (<30 mg/dL) 11/20/18 06:38 Urine Glucose (UA) Negative mg/dL (NEGATIVE) 11/20/18 06:38 Urine Ketones Negative mg/dL (NEGATIVE) 11/20/18 06:38 Urine Blood Negative (NEGATIVE) 11/20/18 06:38 Urine Nitrate Negative (NEGATIVE) 11/20/18 06:38 Urine Bilirubin Negative (NEGATIVE) 11/20/18 06:38 Urine Urobilinogen 0.2 E.U./dL (<1 E.U./dL) 11/20/18 06:38 Ur Leukocyte Esterase Negative Manny/uL (NEGATIVE) 11/20/18 06:38 HIV 1&2 Ag/Ab, 4th Gen Nonreactive (Nonreactive) 11/20/18 07:00 - Hospital Course Hospital Course: Patient is a 47yo male with history of Hepatitis C and IV drug abuse that [facility] with c/o painful right forearm abscess that he had noted several days prior to presentation. He admitted to ongoing IV drug abuse with heroin in his right forearm and subsequently noticed the erythema, induration and pain that followed. He endorsed using heroin in his left forearm as well and using approximately 3 bags of heroin daily. He endorsed subjective fevers however denied chills, headache, dizziness, nausea, vomiting, chest pain, palpitations, SOB, abdominal pain, nausea, vomiting. On admission, surgery was consulted and performed a bedside incision and drainage of the abcesss. The wound was cultured and he was started on broad spectrum antibiotics with vancomycin and zosyn. ESR and CRP were noted to be elevated. Infectious disease was consulted for management as well. Prior to identification of the causative organism, the patient signed out against medical advice despite our best efforts to urge him to stay for full workup and treatment. He was advised to return to the emergency room immediately should his condition worsen or he change his mind at any time. He was counseled on the importance of cessation of drug use. Physical Exam: Please refer to physical exam from H&P written on 11/20/2018 Discharge Plan - Follow Up Plan Condition: STABLE Disposition: AGAINST MEDICAL ADVICE Referrals: Elidia Lieberman DO [Primary Care Provider] - <Mimi Hazel - Last Filed: 11/21/18 15:41> Provider - Provider Date of Admission: 11/19/18 21:34 Attending physician: Mimi Hazel MD Primary care physician: Elidia Lieberman DO Consults: 11/19/18 22:21 Infectious Disease Consult Routine Comment: Consulting Provider: Lee Ji Consulting Physician: Lee Ji Reason for Consult: R & L forearm abscess/cellulitis, R>L. IVDA, HepC 11/19/18 22:59 General Surgery Consult Routine Comment: Consulting Provider: Caro Gonzalez Consulting Physician: Caro Gonzalez Reason for Consult: R forearm abscess, IVDA, Hep C 11/20/18 11:47 Case Management Referral Routine Comment: Physician Instructions: Reason For Exam: Reason for Referral: Dye Stand Loader [facility] Course - Lab Results Lab Results: Micro Results 11/20/18 00:49 Abscess - Arm-Left Gram Stain - Final 11/20/18 00:49 Abscess - Arm-Left Wound Culture - Preliminary Gram Positive Cocci 11/19/18 21:30 Blood-Venous Blood Culture - Preliminary NO GROWTH AFTER 24 HOURS 11/19/18 21:15 Blood-Venous Blood Culture - Preliminary NO GROWTH AFTER 24 HOURS Most Recent Lab Values WBC 3.2 10^3/uL (4.5-11.0) L D 11/20/18 06:40 RBC 3.46 10^6/uL (3.5-6.1) L 11/20/18 06:40 Hgb 10.5 g/dL (14.0-18.0) L 11/20/18 06:40 Hct 31.0 % (42.0-52.0) L 11/20/18 06:40 MCV 89.6 fl (80.0-105.0) 11/20/18 06:40 MCH 30.3 pg (25.0-35.0) 11/20/18 06:40 MCHC 33.9 g/dl (31.0-37.0) 11/20/18 06:40 RDW 14.1 % (11.5-14.5) 11/20/18 06:40 Plt Count 57 10^3/uL (120.0-450.0) L 11/20/18 06:40 MPV 11.3 fl (7.0-11.0) H 11/20/18 06:40 Neut % (Auto) 61.7 % (50.0-68.0) 11/20/18 06:40 Lymph % (Auto) 24.1 % (22.0-35.0) 11/20/18 06:40 Day % (Auto) 9.8 % (1.0-6.0) H 11/20/18 06:40 Eos % (Auto) 4.1 % (1.5-5.0) 11/20/18 06:40 Baso % (Auto) 0.3 % (0.0-3.0) 11/20/18 06:40 Lymph # (Auto) 0.8 (1.2-3.4) L 11/20/18 06:40 Day # (Auto) 0.3 (0.1-0.6) 11/20/18 06:40 Eos # (Auto) 0.1 (0.0-0.7) 11/20/18 06:40 Baso # (Auto) 0.01 K/mm3 (0.0-2.0) 11/20/18 06:40 Absolute Neuts (auto) 1.94 (1.4-6.5) 11/20/18 06:40 ESR 21 mm/hr (0.0-15.0) H 11/20/18 10:45 Sodium 135 mmol/L (132-148) 11/20/18 06:40 Potassium 4.1 mmol/L (3.6-5.0) 11/20/18 06:40 Chloride 103 mmol/L (98-107) 11/20/18 06:40 Carbon Dioxide 26 mmol/L (21-33) 11/20/18 06:40 Anion Gap 10 (10-20) 11/20/18 06:40 BUN 18 mg/dL (7-21) 11/20/18 06:40 Creatinine 0.6 mg/dl (0.8-1.5) L 11/20/18 06:40 Est GFR ( Amer) > 60 11/20/18 06:40 Est GFR (Non-Af Amer) > 60 11/20/18 06:40 Random Glucose 99 mg/dL (70-110) 11/20/18 06:40 Calcium 8.0 mg/dL (8.4-10.5) L 11/20/18 06:40 Phosphorus 4.2 mg/dL (2.5-4.5) 11/20/18 06:40 Magnesium 1.8 mg/dL (1.7-2.2) 11/20/18 06:40 Total Bilirubin 0.9 mg/dL (0.2-1.3) 11/20/18 06:40 AST 103 U/L (17-59) H 11/20/18 06:40 ALT 85 U/L (7-56) H 11/20/18 06:40 Alkaline Phosphatase 108 U/L (38-126) 11/20/18 06:40 C-Reactive Protein 27.70 mg/L (0.0-9.9) H 11/20/18 10:45 Total Protein 6.5 g/dL (5.8-8.3) 11/20/18 06:40 Albumin 2.9 g/dL (3.0-4.8) L 11/20/18 06:40 Globulin 3.6 gm/dL 11/20/18 06:40 Albumin/Globulin Ratio 0.8 (1.1-1.8) L 11/20/18 06:40 Procalcitonin 0.14 NG/ML (0.19-0.49) L 11/20/18 10:45 Urine Color Yellow (YELLOW) 11/20/18 06:38 Urine Appearance Clear (CLEAR) 11/20/18 06:38 Urine pH 6.0 (4.7-8.0) 11/20/18 06:38 Ur Specific [place] 1.025 (1.005-1.035) 11/20/18 06:38 Urine Protein Negative mg/dL (<30 mg/dL) 11/20/18 06:38 Urine Glucose (UA) Negative mg/dL (NEGATIVE) 11/20/18 06:38 Urine Ketones Negative mg/dL (NEGATIVE) 11/20/18 06:38 Urine Blood Negative (NEGATIVE) 11/20/18 06:38 Urine Nitrate Negative (NEGATIVE) 11/20/18 06:38 Urine Bilirubin Negative (NEGATIVE) 11/20/18 06:38 Urine Urobilinogen 0.2 E.U./dL (<1 E.U./dL) 11/20/18 06:38 Ur Leukocyte Esterase Negative Manny/uL (NEGATIVE) 11/20/18 06:38 HIV 1&2 Ag/Ab, 4th Gen Nonreactive (Nonreactive) 11/20/18 07:00 Attending/Attestation - Attestation I have personally seen and examined this patient.: Yes I have fully participated in the care of the patient.: Yes I have reviewed all pertinent clinical information, including history, physical exam and plan: Yes Notes (Text): 11/21/18 15:36 Attending note; Patient seen and examined with resident. Patient is alert and awake. Denies any fevers, chills. Denies any nausea, vomiting Right hands swelling is improving. Dressing in place. Denies any diarrhea. Tolerating diet well. Patient is a 47 year old male with history of Hepatitis C and IV drug abuse that presented to [facility] with c/o painful right forearm abscess that he had noted several days prior to presentation. 1. Right arm abscess; post I and D by surgery. currently dressing in place. Significant swelling noted. No bleeding or discharge. Started on IV vancomycin and Zosyn. ID Evaluation appreciated. 2. Active IV drug abuse; complete drug abuse cessation is strongly advised. Patient will be seen by social services technician to assist in rehab. 3. wound Culture and blood cultures pending . Addendum; Patient signed AGAINST MEDICAL ADVICE later that day. 11/21/18 15:40
== END 2018-11-20 22:15 | disposition left against medical advice (07) | DRG 277 ==
LOC: ED 19:27 → ERH 21:34 → 5RNO 11-20 00:10
PROVIDERS: ADMIT Internal Medicine; ATTEND Internal Medicine
PROC: 0X9D3ZZ Drainage of Right Lower Arm, Percutaneous Approach (ICD-10-PCS; principal; 2018-11-20)
DX: L02.413 Cutaneous abscess of right upper limb (principal); F11.10 Opioid abuse, uncomplicated; B19.20 Unspecified viral hepatitis C without hepatic coma; D69.6 Thrombocytopenia, unspecified; F14.90 Cocaine use, unspecified, uncomplicated; L03.113 Cellulitis of right upper limb; F17.210 Nicotine dependence, cigarettes, uncomplicated; I10 Essential (primary) hypertension

== ENCOUNTER 2018-11-23 17:05 | Observation (INO) | payer MEDICAID ==
[2018-11-23 17:06] VITALS: BMI 25.7
--- NOTE | 2018-11-23 17:48 | ED PDOC ---
Arrival/HPI - General Chief Complaint: Wound Check Historian: Patient - History of Present Illness Narrative History of Present Illness (Text): 11/23/18 17:52 Pt is a 47 yo male with a PMH of Hep C, IVDA heroine abuse, cellulitis, hypertension, and abscess who presents to the ED after being called back for a positive wound culture. Pt signed out AMA 3 days ago before his wound culture was positive. Pt denies any swelling, throbbing pain, red steaks, or drainage from his wound. Pt is agreeable to stay in the hospital to receive antibiotics for his infection. Denies chest pain, shortness of breath. Time/Duration: Prior to Arrival Symptom Onset: Gradual Symptom Course: Unchanged Quality: Tightness Severity Level: 2 Activities at Onset: Rest Context: Sitting Past Medical History - Infectious Disease Hx of Infectious Diseases: None - Cardiac Hx Cardiac Disorders: No - Pulmonary Hx Respiratory Disorders: No - Neurological Hx Neurological Disorder: No - HEENT Hx HEENT Disorder: No - Renal Hx Renal Disorder: No - Endocrine/Metabolic Hx Endocrine Disorders: No - Hematological/Oncological Hx Blood Disorders: No Hx Hepatitis C: Yes - Integumentary Hx Dermatological Disorder: No - Musculoskeletal/Rheumatological Hx Musculoskeletal Disorders: No - Gastrointestinal Other/Comment: ABD PAIN - Genitourinary/Gynecological Hx Genitourinary Disorders: No - Psychiatric Hx Psychophysiologic Disorder: No Hx Substance Use: Yes (ADMITS TO USING IV HEROINE 11/18) - Surgical History Hx Appendectomy: Yes Hx Cholecystectomy: Yes Hx Tonsillectomy: Yes - Anesthesia Hx Anesthesia: Yes Hx Anesthesia Reactions: No Hx Malignant Hyperthermia: No Family/Social History Family/Social History: No Known Family HX Smoking Status: Light Smoker < 10 Cigarettes Daily Hx Alcohol Use: Yes Hx Substance Use: Yes (ADMITS TO USING IV HEROINE 11/18) Substance used: Heroine Allergies/Home Meds Allergies/Adverse Reactions: Allergies No Known Allergies Allergy (Verified 11/23/18 17:22) Review of Systems - Review of Systems Constitutional: Night Sweats Eyes: Normal ENT: Normal Respiratory: Normal Cardiovascular: Normal Gastrointestinal: Normal Musculoskeletal: Normal Skin: Skin Lesions (near medial epicondyle ) Neurological: Normal Endocrine: Normal Hemo/Lymphatic: Normal Psychiatric: Normal Physical Exam Vital Signs Reviewed: Yes Vital Signs Temp Pulse Resp BP Pulse Ox 11/23/18 17:13 97.6 F 71 18 117/71 97 Temperature: Afebrile Blood Pressure: Normal Pulse: Regular Respiratory Rate: Normal Appearance: Positive for: Well-Appearing Mental Status: Positive for: Alert and Oriented X 3 - Systems Exam Head: Present: Atraumatic, Normocephalic Pupils: Present: PERRL Extroacular Muscles: Present: EOMI Mouth: Present: Moist Mucous Membranes Respiratory/Chest: Present: Clear to Auscultation, Good Air Exchange Cardiovascular: Present: Regular Rate and Rhythm, Normal S1, S2 Abdomen: Present: Normal Bowel Sounds. No: Tenderness, Distention Upper Extremity: Present: Normal Inspection Lower Extremity: Present: Normal Inspection Neurological: Present: GCS=15, CN II-XII Intact Psychiatric: Present: Alert, Oriented x 3 Medical Decision Making ED Course and Treatment: 11/23/18 18:48 CBC CMP vanc 11/23/18 19:[address] Head, accepts pt to hospitalist service Pt seen, examined, assessment and plan discussed with Dr Bennie Rodriguez PGY1 - PA / CORN CUTTER OPERATOR / Resident Statement KIRSTEN has reviewed & agrees with the documentation as recorded. KIRSTEN has examined the patient and agrees with the treatment plan. Disposition/Present on Arrival - Present on Arrival Any Indicators Present on Arrival: No History of DVT/PE: No History of Uncontrolled Diabetes: No Urinary Catheter: No History of Decub. Ulcer: No History Surgical Site Infection Following: None - Disposition Have Diagnosis and Disposition been Completed?: Yes Diagnosis: Positive culture findings in wound Disposition: HOSPITALIZED Disposition Time: 18:50 Patient Plan: Admission Patient Problems: Current Active Problems Problem Status Onset Positive culture findings in wound Acute Condition: FAIR Referrals: Elidia Lieberman DO [Primary Care Provider] - Follow up with primary Forms: [employer] ([place])
[2018-11-23] MEDS ORDERED: Vancomycin 1gm in NS 250ml 1 GM/250 ML BAG IVPB SCH (18:00)
[2018-11-23 18:15] LABS: BASO # 0.01 K/mm3 (0.0-2.0); BASO % 0.4 % (0.0-3.0); EOS # 0.1 (0.0-0.7); EOS % 3.4 % (1.5-5.0); HEMOGLOBIN 10.3 g/dL (14.0-18.0); LYMPH # 0.8 (1.2-3.4); LYMPH % 29.2 % (22.0-35.0); MEAN CELL VOLUME 90.8 fl (80.0-105.0); MEAN CORPUSCULAR HEMOGLOBIN 30.5 pg (25.0-35.0); MEAN CORPUSCULAR HGB CONC 33.6 g/dl (31.0-37.0); MONO # 0.2 (0.1-0.6); MONO % 7.1 % (1.0-6.0); RBC 3.38 10^6/uL (3.5-6.1); RED CELL DISTRIBUTION WIDTH 14.1 % (11.5-14.5); WHITE BLOOD COUNT 2.7 10^3/uL (4.5-11.0)
[2018-11-23] MEDS ORDERED: Vancomycin 1gm in NS 250ml 1 GM/250 ML BAG IVPB STA (19:01)
[2018-11-23 19:24] LABS: ALB/GLOB RATIO 0.8 (1.1-1.8); ALBUMIN 3.3 g/dL (3.0-4.8); ALT/SGPT 74 U/L (7-56); AST/SGOT 83 U/L (17-59); BLOOD UREA NITROGEN 14 mg/dL (7-21); CALCIUM 8.6 mg/dL (8.4-10.5); GFR NON-AFRICAN AMERICAN > 60
--- NOTE | 2018-11-23 20:13 | CP.PCM.HP ---
<BrantJacob - Last Filed: 11/24/18 00:15> History of Present Illness - History of Present Illness History of Present Illness: Jacob Guo, PGY1 H&P for Dr. Head cc: "Return to ED for +MRSA Wound Culture for right forearm abscess" Pt is a 47 yo male with a PMH of Hep C (not on treatment), IVDA heroine abuse, cellulitis, hypertension, and right forearm abscess who presents to the ED after being called back for a positive wound culture for MRSA. During last hospital visit on 11/20, patient was admitted for right forearm abscess. He had gone for I&D by surgical team. There was significant swelling but no bleeding or discharge noted. Abscess was secondary to IVDA via heroin injections. However, patient signed out AMA before wound culture results came back, which were +MRSA. Patient was contacted and he decided to come to the ED during this present visit. Pt denies any swelling, throbbing pain, red steaks, or drainage from his wound. No headache, cp, sob, fever, chills, n/v/d. Patient last used heroine yesterday even though he was extensively educated on cessation during prior vis it. A full 12 point ROS was conducted and unremarkable except as stated above. PMH: Hep C, IVDA heroine abuse, cellulitis, hypertension, and forearm abscess All: NKDA Meds: none PSH: tonsillectomy- 9yrs ago, Appendectomy- 9yrs ago SH: Heroin IV, 3 bags daily. Denies tobacco use. Denies ETOH use. Lives in [place]. FH: Mother: none. Father: : liver failure Present on Admission - Present on Admission Any Indicators Present on Admission: No Review of Systems - Review of Systems All systems: reviewed and no additional remarkable complaints except (as per H PI) Past Patient History - Infectious Disease Hx of Infectious Diseases: None - Past Social History Smoking Status: Light Smoker < 10 Cigarettes Daily - CARDIAC Hx Cardiac Disorders: No - PULMONARY Hx Respiratory Disorders: No - NEUROLOGICAL Hx Neurological Disorder: No - HEENT Hx HEENT Problems: No - RENAL Hx Chronic Kidney Disease: No - ENDOCRINE/METABOLIC Hx Endocrine Disorders: No - HEMATOLOGICAL/ONCOLOGICAL Hx Blood Disorders: No Hx Hepatitis C: Yes - INTEGUMENTARY Hx Dermatological Problems: No - MUSCULOSKELETAL/RHEUMATOLOGICAL Hx Musculoskeletal Disorders: No - GASTROINTESTINAL Other/Comment: DIONI PAIN - GENITOURINARY/GYNECOLOGICAL Hx Genitourinary Disorders: No - PSYCHIATRIC Hx Psychophysiologic Disorder: No Hx Substance Use: Yes (ADMITS TO USING IV HEROINE 11/18) - SURGICAL HISTORY Hx Appendectomy: Yes Hx Cholecystectomy: Yes Hx Tonsillectomy: Yes - ANESTHESIA Hx Anesthesia: Yes Hx Anesthesia Reactions: No Hx Malignant Hyperthermia: No Meds Allergies/Adverse Reactions: Allergies Allergy/AdvReac Type Severity Reaction Status Date / Time No Known Allergies Allergy Verified 11/23/18 17:22 Physical Exam - Constitutional Appears: No Acute Distress - Head Exam Head Exam: ATRAUMATIC, NORMAL INSPECTION, NORMOCEPHALIC - Eye Exam Eye Exam: EOMI, Normal appearance - ENT Exam ENT Exam: Mucous Membranes Moist - Respiratory Exam Respiratory Exam: Clear to Auscultation Bilateral, NORMAL BREATHING PATTERN. absent: Accessory Muscle Use, Chest Wall Tenderness, Rales, Rhonchi, Wheezes - Cardiovascular Exam Cardiovascular Exam: RRR, +S1, +S2 - GI/Abdominal Exam GI & Abdominal Exam: Normal Bowel Sounds, Soft. absent: Firm, Guarding, Rebound, Rigid, Tenderness - Extremities Exam Extremities exam: Positive for: normal capillary refill, pedal pulses present. Negative for: tenderness Additional comments: Right ante-cubital fossa abscess, 3x3cm at the medial aspect of forearm; no bleed/pus drainage, no fluctuation. Multiple track ortiz are noted at bilateral upper extremities. - Back Exam Back exam: NORMAL INSPECTION - Neurological Exam Neurological exam: Alert, CN II-XII Intact, Oriented x3 - Psychiatric Exam Psychiatric exam: Normal Affect, Normal Mood - Skin Skin Exam: Dry, Intact, Warm Results - Vital Signs Recent Vital Signs: Last Vital Signs Temp 98.1 F 11/23/18 19:51 Pulse 59 L 11/23/18 19:51 Resp 18 11/23/18 19:51 BP 109/65 11/23/18 19:51 Pulse Ox 100 11/23/18 19:51 - Labs Result Diagrams: 11/23/18 18:00 11/23/18 18:00 Labs: Laboratory Results - last 24 hr 11/23/18 11/23/18 11/23/18 18:00 18:00 18:00 WBC 2.7 L RBC 3.38 L Hgb 10.3 L Hct 30.7 L MCV 90.8 MCH 30.5 MCHC 33.6 RDW 14.1 Plt Count 59 L MPV 10.0 Neut % (Auto) 59.9 Lymph % (Auto) 29.2 [place] % (Auto) 7.1 H Eos % (Auto) 3.4 Baso % (Auto) 0.4 Lymph # (Auto) 0.8 L [place] # (Auto) 0.2 Eos # (Auto) 0.1 Baso # (Auto) 0.01 Absolute Neuts (auto) 1.60 Sodium 142 Potassium 3.8 Chloride 107 Carbon Dioxide 26 Anion Gap 13 BUN 14 Creatinine 0.8 Est GFR ( Amer) > 60 Est GFR (Non-Af Amer) > 60 Random Glucose 119 H Calcium 8.6 Phosphorus 3.4 Magnesium 1.9 Total Bilirubin 0.9 AST 83 H ALT 74 H Alkaline Phosphatase 98 Total Protein 7.3 Albumin 3.3 Globulin 4.0 Albumin/Globulin Ratio 0.8 L Assessment & Plan - Assessment and Plan (Free Text) Assessment: Pt is a 47 yo male with a PMH of Hep C (not on treatment), IVDA heroine abuse, cellulitis, hypertension, and forearm abscess who presents to the ED after being called back to return to the ED for a positive wound culture (+MRSA) for recent right forearm abscess. Plan: Right Forearm Abscess 2/2 IVDA, +MRSA wound culture - started on vanco 1g IVPB q12 - Wound Cx: +MRSA - ID on consult - Urine drug screen - contact precautions - s/p I&D on 11/20 Hepatitis C - denies history of treatment - Mild transaminitis (chronic) 2/2 Hep C - Thrombocytopenia (chronic) 2/2 Hepatitic C - Will avoid pepcid because of thrombocytopenia - Recent HIV negative - EtOH level negative IVDA - Counselled on cessation - Monitor for heroin w/d - Avoid opiate analgesics DVT/GI PPx: SCD/protonix Diet: HHD Dispo: Will observe patient on the floor. Continue with vancomycin for +MRSA coverage. Further recs from ID. Case was discussed and reviewed with Attending Physician, Dr. Head. <Christina Head - Last Filed: 11/24/18 05:41> Results - Vital Signs Recent Vital Signs: Last Vital Signs Temp 98.1 F 11/23/18 19:51 Pulse 61 11/23/18 22:40 Resp 19 05/20/19 00:01 BP 110/65 11/23/18 22:40 Pulse Ox 100 11/23/18 22:40 - Labs Result Diagrams: 11/23/18 18:00 11/23/18 18:00 Labs: Laboratory Results - last 24 hr 11/23/18 11/23/18 11/23/18 18:00 18:00 18:00 WBC 2.7 L RBC 3.38 L Hgb 10.3 L Hct 30.7 L MCV 90.8 MCH 30.5 MCHC 33.6 RDW 14.1 Plt Count 59 L MPV 10.0 Neut % (Auto) 59.9 Lymph % (Auto) 29.2 [place] % (Auto) 7.1 H Eos % (Auto) 3.4 Baso % (Auto) 0.4 Lymph # (Auto) 0.8 L [place] # (Auto) 0.2 Eos # (Auto) 0.1 Baso # (Auto) 0.01 Absolute Neuts (auto) 1.60 Sodium 142 Potassium 3.8 Chloride 107 Carbon Dioxide 26 Anion Gap 13 BUN 14 Creatinine 0.8 Est GFR ( Amer) > 60 Est GFR (Non-Af Amer) > 60 Random Glucose 119 H Calcium 8.6 Phosphorus 3.4 Magnesium 1.9 Total Bilirubin 0.9 AST 83 H ALT 74 H Alkaline Phosphatase 98 Total Protein 7.3 Albumin 3.3 Globulin 4.0 Albumin/Globulin Ratio 0.8 L Urine Opiates Screen Urine Methadone Screen Ur Barbiturates Screen Ur Phencyclidine Scrn Ur Amphetamines Screen U Benzodiazepines Scrn U Oth Cocaine Metabols U Cannabinoids Screen Alcohol, Quantitative 11/23/18 11/23/18 18:00 23:30 WBC RBC Hgb Hct MCV MCH MCHC RDW Plt Count MPV Neut % (Auto) Lymph % (Auto) [place] % (Auto) Eos % (Auto) Baso % (Auto) Lymph # (Auto) [place] # (Auto) Eos # (Auto) Baso # (Auto) Absolute Neuts (auto) Sodium Potassium Chloride Carbon Dioxide Anion Gap BUN Creatinine Est GFR ( Amer) Est GFR (Non-Af Amer) Random Glucose Calcium Phosphorus Magnesium Total Bilirubin AST ALT Alkaline Phosphatase Total Protein Albumin Globulin Albumin/Globulin Ratio Urine Opiates Screen Positive H Urine Methadone Screen Negative Ur Barbiturates Screen Negative Ur Phencyclidine Scrn Negative Ur Amphetamines Screen Negative U Benzodiazepines Scrn Negative U Oth Cocaine Metabols Positive H U Cannabinoids Screen Negative Alcohol, Quantitative < 10 Attending/Attestation - Attestation I have personally seen and examined this patient.: Yes I have fully participated in the care of the patient.: Yes I have reviewed all pertinent clinical information: Yes Notes (Text): 11/24/18 05:41 Seen and examined. Discussed with resident. A&P as above.
[2018-11-23] MEDS: Vancomycin 1gm in NS 250ml 1 GM/250 ML BAG IVPB SCH (20:39)
[2018-11-24 00:48] LABS: BARBITURATES, UR NEGATIVE (NEGATIVE); BENZODIAZEPINES, UR NEGATIVE (NEGATIVE); OPIATES, UR POSITIVE (NEGATIVE); PHENCYCLIDINE, UR NEGATIVE (NEGATIVE)
[2018-11-24] MEDS: Pantoprazole 40 mg EC Tab PO SCH (05:20)
[2018-11-24 08:11] LABS: EOS # 0.1 (0.0-0.7); EOS % 6.3 % (1.5-5.0); HEMOGLOBIN 10.2 g/dL (14.0-18.0); LYMPH # 0.7 (1.2-3.4); LYMPH % 34.6 % (22.0-35.0); MEAN CELL VOLUME 90.2 fl (80.0-105.0); MEAN CORPUSCULAR HEMOGLOBIN 30.2 pg (25.0-35.0); MEAN CORPUSCULAR HGB CONC 33.4 g/dl (31.0-37.0); MEAN PLATELET VOLUME 10.9 fl (7.0-11.0); MONO # 0.1 (0.1-0.6); MONO % 6.8 % (1.0-6.0); PLATELET COUNT 60 10^3/uL (120.0-450.0); RBC 3.38 10^6/uL (3.5-6.1); RED CELL DISTRIBUTION WIDTH 14.2 % (11.5-14.5)
[2018-11-24 08:17] LABS: ALT/SGPT 68 U/L (7-56); WHITE BLOOD COUNT 1.9 10^3/uL (4.5-11.0)
[2018-11-24 08:29] LABS: ALB/GLOB RATIO 0.8 (1.1-1.8); ALBUMIN 2.9 g/dL (3.0-4.8); AST/SGOT 71 U/L (17-59); BLOOD UREA NITROGEN 15 mg/dL (7-21); CALCIUM 8.1 mg/dL (8.4-10.5); GFR NON-AFRICAN AMERICAN > 60
[2018-11-24] MEDS ORDERED: Vancomycin 1gm in NS 250ml 1 GM/250 ML BAG IVPB SCH (10:00)
[2018-11-24] MEDS: Vancomycin 1gm in NS 250ml 1 GM/250 ML BAG IVPB SCH ×2 (10:03→21:02)
[2018-11-24 10:15] LABS: LYMPHOCYTE 30 % (22.0-35.0); NEUTROPHIL 56 % (50.0-70.0)
[2018-11-24 10:16] LABS: EOSINOPHIL 8 % (0.0-3.0); MONOCYTE 6 % (1.0-6.0); PLATELET ESTIMATE LOW (NORMAL)
--- NOTE | 2018-11-24 10:32 | CP.PCM.CON ---
<Brody Vale - Last Filed: 11/24/18 14:24> History of Present Illness - History of Present Illness History of Present Illness: Infectious disease consult note: 47-year-old male with past medical history of hepatitis C that is untreated, IV drug abuse with heroin, cellulitis, hypertension, presents with right forearm abscess following a wound culture of MRSA. Patient was just here in the hospital admitted for the right forearm abscess which was I&D. At this time the patient was treated however the patient left AGAINST MEDICAL ADVICE. Cultures grew back MRSA and patient was subsequently called to come back to the hospital. Infectious diseases consulted for MRSA in the wound, and IV antibiotics. 12 point ROS performed negative unless stated above PMH: As above PSH: Tonsillectomy and appendectomy Allergies: No known drug allergies Medications denies SH: IV drug abuser with heroin, denies any smoking or drinking FH: Father with liver failure Review of Systems - Review of Systems All systems: reviewed and no additional remarkable complaints except Past Patient History - Infectious Disease Hx of Infectious Diseases: None - Past Social History Smoking Status: Light Smoker < 10 Cigarettes Daily - CARDIAC Hx Cardiac Disorders: No - PULMONARY Hx Respiratory Disorders: No - NEUROLOGICAL Hx Neurological Disorder: No - HEENT Hx HEENT Problems: No - RENAL Hx Chronic Kidney Disease: No - ENDOCRINE/METABOLIC Hx Endocrine Disorders: No - HEMATOLOGICAL/ONCOLOGICAL Hx Blood Disorders: No Hx Hepatitis C: Yes - INTEGUMENTARY Hx Dermatological Problems: No - MUSCULOSKELETAL/RHEUMATOLOGICAL Hx Musculoskeletal Disorders: No - GASTROINTESTINAL Other/Comment: ABD PAIN - GENITOURINARY/GYNECOLOGICAL Hx Genitourinary Disorders: No - PSYCHIATRIC Hx Psychophysiologic Disorder: No Hx Substance Use: Yes (ADMITS TO USING IV HEROINE 11/18) - SURGICAL HISTORY Hx Appendectomy: Yes Hx Cholecystectomy: Yes Hx Tonsillectomy: Yes - ANESTHESIA Hx Anesthesia: Yes Hx Anesthesia Reactions: No Hx Malignant Hyperthermia: No Meds Allergies/Adverse Reactions: Allergies Allergy/AdvReac Type Severity Reaction Status Date / Time No Known Allergies Allergy Verified 11/23/18 17:22 - Medications Medications: Current Medications Acetaminophen (Tylenol 325mg Tab) 650 mg PO Q6H PRN PRN Reason: Fever >100.4 F Last Admin: 11/23/18 23:36 Dose: 650 mg Vancomycin HCl (Vancomycin 1gm) 1 gm in 250 mls @ 167 mls/hr IVPB Q12H APARNA; Pro tocol Stop: 12/01/18 20:46 Last Admin: 11/24/18 10:03 Dose: 167 mls/hr Pantoprazole Sodium (Protonix Ec Tab) 40 mg PO 0600 APARNA Last Admin: 11/24/18 05:20 Dose: 40 mg Physical Exam - Constitutional Appears: No Acute Distress - Head Exam Head Exam: ATRAUMATIC, NORMOCEPHALIC - Eye Exam Eye Exam: EOMI, PERRL - ENT Exam ENT Exam: Mucous Membranes Moist - Respiratory Exam Respiratory Exam: Clear to Auscultation Bilateral. absent: Wheezes - Cardiovascular Exam Cardiovascular Exam: REGULAR RHYTHM, +S1, +S2 - GI/Abdominal Exam GI & Abdominal Exam: Normal Bowel Sounds, Soft. absent: Tenderness - Extremities Exam Extremities exam: Negative for: calf tenderness, pedal edema Additional comments: Right upper extremity: Area of erythema and edema in the right forearm warm to the touch, no purulent drainage noted - Neurological Exam Neurological exam: Alert, Oriented x3 - Psychiatric Exam Psychiatric exam: Normal Mood - Skin Skin Exam: Dry, Warm Results - Vital Signs Recent Vital Signs: Last Vital Signs Temp 98.1 F 11/23/18 19:51 Pulse 61 11/23/18 22:40 Resp 19 11/24/18 00:01 BP 110/65 11/23/18 22:40 Pulse Ox 100 11/23/18 22:40 - Labs Result Diagrams: 11/24/18 07:40 11/24/18 07:40 Labs: Laboratory Results - last 24 hr 11/23/18 11/23/18 11/23/18 18:00 18:00 18:00 WBC 2.7 L RBC 3.38 L Hgb 10.3 L Hct 30.7 L MCV 90.8 MCH 30.5 MCHC 33.6 RDW 14.1 Plt Count 59 L MPV 10.0 Neut % (Auto) 59.9 Lymph % (Auto) 29.2 La[place] % (Auto) 7.1 H Eos % (Auto) 3.4 Baso % (Auto) 0.4 Lymph # (Auto) 0.8 L [place] # (Auto) 0.2 Eos # (Auto) 0.1 Baso # (Auto) 0.01 Absolute Neuts (auto) 1.60 Neutrophils % (Manual) Lymphocytes % (Manual) Monocytes % (Manual) Eosinophils % (Manual) Platelet Evaluation Sodium 142 Potassium 3.8 Chloride 107 Carbon Dioxide 26 Anion Gap 13 BUN 14 Creatinine 0.8 Est GFR ( Amer) > 60 Est GFR (Non-Af Amer) > 60 Random Glucose 119 H Calcium 8.6 Phosphorus 3.4 Magnesium 1.9 Total Bilirubin 0.9 AST 83 H ALT 74 H Alkaline Phosphatase 98 Total Protein 7.3 Albumin 3.3 Globulin 4.0 Albumin/Globulin Ratio 0.8 L Urine Opiates Screen Urine Methadone Screen Ur Barbiturates Screen Ur Phencyclidine Scrn Ur Amphetamines Screen U Benzodiazepines Scrn U Oth Cocaine Metabols U Cannabinoids Screen Alcohol, Quantitative 11/23/18 11/23/18 11/24/18 18:00 23:30 07:40 WBC 1.9 L* D RBC 3.38 L Hgb 10.2 L Hct 30.5 L MCV 90.2 MCH 30.2 MCHC 33.4 RDW 14.2 Plt Count 60 L MPV 10.9 Neut % (Auto) 52.3 Lymph % (Auto) 34.6 [place] % (Auto) 6.8 H Eos % (Auto) 6.3 H Baso % (Auto) 0.0 Lymph # (Auto) 0.7 L [place] # (Auto) 0.1 Eos # (Auto) 0.1 Baso # (Auto) 0.00 Absolute Neuts (auto) 1.00 L Neutrophils % (Manual) 56 Lymphocytes % (Manual) 30 Monocytes % (Manual) 6 Eosinophils % (Manual) 8 H Platelet Evaluation Low Sodium Potassium Chloride Carbon Dioxide Anion Gap BUN Creatinine Est GFR ( Amer) Est GFR (Non-Af Amer) Random Glucose Calcium Phosphorus Magnesium Total Bilirubin AST ALT Alkaline Phosphatase Total Protein Albumin Globulin Albumin/Globulin Ratio Urine Opiates Screen Positive H Urine Methadone Screen Negative Ur Barbiturates Screen Negative Ur Phencyclidine Scrn Negative Ur Amphetamines Screen Negative U Benzodiazepines Scrn Negative U Oth Cocaine Metabols Positive H U Cannabinoids Screen Negative Alcohol, Quantitative < 10 11/24/18 07:40 WBC RBC Hgb Hct MCV MCH MCHC RDW Plt Count MPV Neut % (Auto) Lymph % (Auto) [place] % (Auto) Eos % (Auto) Baso % (Auto) Lymph # (Auto) [place] # (Auto) Eos # (Auto) Baso # (Auto) Absolute Neuts (auto) Neutrophils % (Manual) Lymphocytes % (Manual) Monocytes % (Manual) Eosinophils % (Manual) Platelet Evaluation Sodium 141 Potassium 4.1 Chloride 110 H Carbon Dioxide 24 Anion Gap 11 BUN 15 Creatinine 0.6 L Est GFR ( Amer) > 60 Est GFR (Non-Af Amer) > 60 Random Glucose 111 H Calcium 8.1 L Phosphorus Magnesium Total Bilirubin 0.5 AST 71 H ALT 68 H Alkaline Phosphatase 116 Total Protein 6.7 Albumin 2.9 L Globulin 3.8 Albumin/Globulin Ratio 0.8 L Urine Opiates Screen Urine Methadone Screen Ur Barbiturates Screen Ur Phencyclidine Scrn Ur Amphetamines Screen U Benzodiazepines Scrn U Oth Cocaine Metabols U Cannabinoids Screen Alcohol, Quantitative Assessment & Plan - Assessment and Plan (Free Text) Assessment: Right forearm abscess with surrounding cellulitis S/P I&D, Wound culture positive for MRSA IV drug abuse Hepatitis C Continue with vancomycin Day 2 HIV - neg I explained to the patient the importance of abstinence from any further drug use. I also explained to the patient that he should get treated for his hepatitis C. Patient verbalized understanding. Continue monitor for any changes Case and plan to be reviewed and discussed with Dr. Ji <Lee Ji - Last Filed: 11/24/18 14:27> Meds - Medications Medications: Current Medications Acetaminophen (Tylenol 325mg Tab) 650 mg PO Q6H PRN PRN Reason: Fever >100.4 F Last Admin: 11/23/18 23:36 Dose: 650 mg Vancomycin HCl (Vancomycin 1gm) 1 gm in 250 mls @ 167 mls/hr IVPB Q12H APARNA; Protocol Stop: 12/01/18 20:46 Last Admin: 11/24/18 10:03 Dose: 167 mls/hr Pantoprazole Sodium (Protonix Ec Tab) 40 mg PO 0600 APARNA Last Admin: 11/24/18 05:20 Dose: 40 mg Results - Vital Signs Recent Vital Signs: Last Vital Signs Temp 98.1 F 11/23/18 19:51 Pulse 60 11/24/18 11:37 Resp 19 11/24/18 00:01 BP 138/79 11/24/18 11:37 Pulse Ox 100 11/23/18 22:40 - Labs Result Diagrams: 11/24/18 07:40 11/24/18 07:40 Labs: Laboratory Results - last 24 hr 11/23/18 11/23/18 11/23/18 18:00 18:00 18:00 WBC 2.7 L RBC 3.38 L Hgb 10.3 L Hct 30.7 L MCV 90.8 MCH 30.5 MCHC 33.6 RDW 14.1 Plt Count 59 L MPV 10.0 Neut % (Auto) 59.9 Lymph % (Auto) 29.2 [place] % (Auto) 7.1 H Eos % (Auto) 3.4 Baso % (Auto) 0.4 Lymph # (Auto) 0.8 L [place] # (Auto) 0.2 Eos # (Auto) 0.1 Baso # (Auto) 0.01 Absolute Neuts (auto) 1.60 Neutrophils % (Manual) Lymphocytes % (Manual) Monocytes % (Manual) Eosinophils % (Manual) Platelet Evaluation Sodium 142 Potassium 3.8 Chloride 107 Carbon Dioxide 26 Anion Gap 13 BUN 14 Creatinine 0.8 Est GFR ( Amer) > 60 Est GFR (Non-Af Amer) > 60 Random Glucose 119 H Calcium 8.6 Phosphorus 3.4 Magnesium 1.9 Total Bilirubin 0.9 AST 83 H ALT 74 H Alkaline Phosphatase 98 Total Protein 7.3 Albumin 3.3 Globulin 4.0 Albumin/Globulin Ratio 0.8 L Urine Opiates Screen Urine Methadone Screen Ur Barbiturates Screen Ur Phencyclidine Scrn Ur Amphetamines Screen U Benzodiazepines Scrn U Oth Cocaine Metabols U Cannabinoids Screen Alcohol, Quantitative 11/23/18 11/23/18 11/24/18 18:00 23:30 07:40 WBC 1.9 L* D RBC 3.38 L Hgb 10.2 L Hct 30.5 L MCV 90.2 MCH 30.2 MCHC 33.4 RDW 14.2 Plt Count 60 L MPV 10.9 Neut % (Auto) 52.3 Lymph % (Auto) 34.6 [place] % (Auto) 6.8 H Eos % (Auto) 6.3 H Baso % (Auto) 0.0 Lymph # (Auto) 0.7 L [place] # (Auto) 0.1 Eos # (Auto) 0.1 Baso # (Auto) 0.00 Absolute Neuts (auto) 1.00 L Neutrophils % (Manual) 56 Lymphocytes % (Manual) 30 Monocytes % (Manual) 6 Eosinophils % (Manual) 8 H Platelet Evaluation Low Sodium Potassium Chloride Carbon Dioxide Anion Gap BUN Creatinine Est GFR ( Amer) Est GFR (Non-Af Amer) Random Glucose Calcium Phosphorus Magnesium Total Bilirubin AST ALT Alkaline Phosphatase Total Protein Albumin Globulin Albumin/Globulin Ratio Urine Opiates Screen Positive H Urine Methadone Screen Negative Ur Barbiturates Screen Negative Ur Phencyclidine Scrn Negative Ur Amphetamines Screen Negative U Benzodiazepines Scrn Negative U Oth Cocaine Metabols Positive H U Cannabinoids Screen Negative Alcohol, Quantitative < 10 11/24/18 07:40 WBC RBC Hgb Hct MCV MCH MCHC RDW Plt Count MPV Neut % (Auto) Lymph % (Auto) [place] % (Auto) Eos % (Auto) Baso % (Auto) Lymph # (Auto) [place] # (Auto) Eos # (Auto) Baso # (Auto) Absolute Neuts (auto) Neutrophils % (Manual) Lymphocytes % (Manual) Monocytes % (Manual) Eosinophils % (Manual) Platelet Evaluation Sodium 141 Potassium 4.1 Chloride 110 H Carbon Dioxide 24 Anion Gap 11 BUN 15 Creatinine 0.6 L Est GFR ( Amer) > 60 Est GFR (Non-Af Amer) > 60 Random Glucose 111 H Calcium 8.1 L Phosphorus Magnesium Total Bilirubin 0.5 AST 71 H ALT 68 H Alkaline Phosphatase 116 Total Protein 6.7 Albumin 2.9 L Globulin 3.8 Albumin/Globulin Ratio 0.8 L Urine Opiates Screen Urine Methadone Screen Ur Barbiturates Screen Ur Phencyclidine Scrn Ur Amphetamines Screen U Benzodiazepines Scrn U Oth Cocaine Metabols U Cannabinoids Screen Alcohol, Quantitative Attending/Attestation - Attestation I have personally seen and examined this patient.: Yes I have fully participated in the care of the patient.: Yes I have reviewed all pertinent clinical information: Yes
[2018-11-24 22:28] VITALS: RESP 20; O2SAT 99
[2018-11-24] MEDS ORDERED: DiphenhydrAMINE 50 mg/ml Inj IVP STA (22:58)
--- NOTE | 2018-11-24 23:33 | CP.PCM.PN ---
Subjective - Date & Time of Evaluation Date of Evaluation: 11/24/18 Time of Evaluation: 23:32 - Subjective Subjective: TBD reglan Benadryl Objective - Vital Signs/Intake and Output Vital Signs (last 24 hours): Temp Pulse Resp BP Pulse Ox 98.2 F 86 20 118/72 99 11/24/18 22:27 11/24/18 22:27 11/24/18 22:27 11/24/18 22:27 11/24/18 22:27 Intake and Output: 11/24/18 11/25/18 18:59 06:59 Intake Total 480 360 Balance 480 360 - Medications Medications: Current Medications Acetaminophen (Tylenol 325mg Tab) 650 mg PO Q6H PRN PRN Reason: Fever >100.4 F Last Admin: 11/23/18 23:36 Dose: 650 mg Vancomycin HCl (Vancomycin 1gm) 1 gm in 250 mls @ 167 mls/hr IVPB Q12H APARNA; Protocol Stop: 12/01/18 20:46 Last Admin: 11/24/18 21:02 Dose: 167 mls/hr Pantoprazole Sodium (Protonix Ec Tab) 40 mg PO 0600 APARNA Last Admin: 11/24/18 05:20 Dose: 40 mg - Labs Labs: 11/24/18 07:40 11/24/18 07:40
[2018-11-25] MEDS ORDERED: DiphenhydrAMINE 50 mg/ml Inj IVP STA (01:10)
[2018-11-25] MEDS: Pantoprazole 40 mg EC Tab PO SCH (07:24)
[2018-11-25 07:36] LABS: EOS % 0.4 % (1.5-5.0); HEMOGLOBIN 11.5 g/dL (14.0-18.0); LYMPH # 0.8 (1.2-3.4); LYMPH % 14.8 % (22.0-35.0); MEAN CORPUSCULAR HEMOGLOBIN 30.1 pg (25.0-35.0); MEAN CORPUSCULAR HGB CONC 34.2 g/dl (31.0-37.0); MEAN PLATELET VOLUME 10.1 fl (7.0-11.0); MONO # 0.2 (0.1-0.6); MONO % 3.3 % (1.0-6.0); RBC 3.82 10^6/uL (3.5-6.1); WHITE BLOOD COUNT 5.5 10^3/uL (4.5-11.0)
[2018-11-25 08:10] LABS: ALB/GLOB RATIO 0.8 (1.1-1.8); ALBUMIN 3.5 g/dL (3.0-4.8); ALT/SGPT 63 U/L (7-56); AST/SGOT 60 U/L (17-59); BLOOD UREA NITROGEN 12 mg/dL (7-21); CALCIUM 8.3 mg/dL (8.4-10.5); GFR NON-AFRICAN AMERICAN > 60
[2018-11-25 09:10] VITALS: BP 128/83; PULSE 96; TEMP 98.5
--- NOTE | 2018-11-25 10:44 | CP.PCM.PN ---
<Brody Vale - Last Filed: 11/25/18 14:46> Subjective - Date & Time of Evaluation Date of Evaluation: 11/25/18 Time of Evaluation: 09:00 - Subjective Subjective: Infectious disease progress note: Patient seen and examined at bedside. No acute events overnight. He states that his celluiltes has improved. No other complaints. 12 point ROS performed and negative unless stated above. Objective - Vital Signs/Intake and Output Vital Signs (last 24 hours): Temp Pulse Resp BP Pulse Ox 98.5 F 96 H 20 128/83 99 11/25/18 06:00 11/25/18 06:00 11/25/18 06:00 11/25/18 06:00 11/25/18 06:00 Intake and Output: 11/25/18 11/25/18 06:59 18:59 Intake Total 360 Balance 360 - Medications Medications: Current Medications Acetaminophen (Tylenol 325mg Tab) 650 mg PO Q6H PRN PRN Reason: Fever >100.4 F Last Admin: 11/23/18 23:36 Dose: 650 mg Vancomycin HCl (Vancomycin 1gm) 1 gm in 250 mls @ 167 mls/hr IVPB Q12H APARNA; Protocol Stop: 12/01/18 20:46 Last Admin: 11/24/18 21:02 Dose: 167 mls/hr Pantoprazole Sodium (Protonix Ec Tab) 40 mg PO 0600 APARNA Last Admin: 11/25/18 07:24 Dose: 40 mg - Labs Labs: 11/25/18 07:20 11/25/18 07:20 - Constitutional Appears: No Acute Distress - Head Exam Head Exam: ATRAUMATIC, NORMOCEPHALIC - Eye Exam Eye Exam: EOMI - ENT Exam ENT Exam: Mucous Membranes Moist - Cardiovascular Exam Cardiovascular Exam: REGULAR RHYTHM, +S1, +S2 - GI/Abdominal Exam GI & Abdominal Exam: Soft. absent: Tenderness - Extremities Exam Extremities Exam: absent: Calf Tenderness Additional comments: R forearm cellulites improved - Neurological Exam Neurological Exam: Alert, Awake, Oriented x3 - Psychiatric Exam Psychiatric exam: Normal Mood - Skin Skin Exam: Dry, Warm Assessment and Plan - Assessment and Plan (Free Text) Assessment: Right forearm abscess with surrounding cellulitis S/P I&D, Wound culture positive for MRSA IV drug abuse Hepatitis C Continue with vancomycin Day 3, can d/c with 5 days of Doxy 100mg BID HIV - neg Continue monitor for any changes Case and plan to be reviewed and discussed with Dr. Ji <Lee Ji - Last Filed: 11/25/18 17:28> Objective - Vital Signs/Intake and Output Vital Signs (last 24 hours): Temp Pulse Resp BP Pulse Ox 98.5 F 96 H 20 128/83 99 11/25/18 06:00 11/25/18 06:00 11/25/18 06:00 11/25/18 06:00 11/25/18 06:00 Intake and Output: 11/25/18 11/25/18 06:59 18:59 Intake Total 360 Balance 360 - Labs Labs: 11/25/18 07:20 11/25/18 07:20 Attending/Attestation - Attestation I have personally seen and examined this patient.: Yes I have fully participated in the care of the patient.: Yes I have reviewed all pertinent clinical information, including history, physical exam and plan: Yes
[2018-11-25] MEDS: Vancomycin 1gm in NS 250ml 1 GM/250 ML BAG IVPB SCH (11:07)
--- NOTE | 2018-11-25 21:16 | CP.PCM.DIS ---
Provider - Provider Date of Admission: 11/23/18 19:05 Attending physician: Mimi Skinner DO Primary care physician: Elidia Lieberman DO Consults: 11/23/18 19:40 Physician Consult Routine Comment: Consulting Provider: Lee Ji Consulting Physician: Lee Ji Reason for Consult: MRSA positive wound, IV abx Time Spent in preparation of Discharge (in minutes): 40 Diagnosis - Discharge Diagnosis (1) Abscess Status: Acute (2) Cellulitis Status: Acute (3) IV drug abuse Status: Acute (4) MRSA (methicillin resistant staph aureus) culture positive Status: Acute Hospital Course - Lab Results Lab Results: Most Recent Lab Values WBC 5.5 10^3/uL (4.5-11.0) D 11/25/18 07:20 RBC 3.82 10^6/uL (3.5-6.1) 11/25/18 07:20 Hgb 11.5 g/dL (14.0-18.0) L 11/25/18 07:20 Hct 33.6 % (42.0-52.0) L 11/25/18 07:20 MCV 88.0 fl (80.0-105.0) 11/25/18 07:20 MCH 30.1 pg (25.0-35.0) 11/25/18 07:20 MCHC 34.2 g/dl (31.0-37.0) 11/25/18 07:20 RDW 14.0 % (11.5-14.5) 11/25/18 07:20 Plt Count 72 10^3/uL (120.0-450.0) L 11/25/18 07:20 MPV 10.1 fl (7.0-11.0) 11/25/18 07:20 Neut % (Auto) 81.5 % (50.0-68.0) H 11/25/18 07:20 Lymph % (Auto) 14.8 % (22.0-35.0) L 11/25/18 07:20 Crosby % (Auto) 3.3 % (1.0-6.0) 11/25/18 07:20 Eos % (Auto) 0.4 % (1.5-5.0) L 11/25/18 07:20 Baso % (Auto) 0.0 % (0.0-3.0) 11/25/18 07:20 Lymph # (Auto) 0.8 (1.2-3.4) L 11/25/18 07:20 [place] # (Auto) 0.2 (0.1-0.6) 11/25/18 07:20 Eos # (Auto) 0.0 (0.0-0.7) 11/25/18 07:20 Baso # (Auto) 0.00 K/mm3 (0.0-2.0) 11/25/18 07:20 Absolute Neuts (auto) 4.45 (1.4-6.5) 11/25/18 07:20 Neutrophils % (Manual) 56 % (50.0-70.0) 11/24/18 07:40 Lymphocytes % (Manual) 30 % (22.0-35.0) 11/24/18 07:40 Monocytes % (Manual) 6 % (1.0-6.0) 11/24/18 07:40 Eosinophils % (Manual) 8 % (0.0-3.0) H 11/24/18 07:40 Platelet Evaluation Low (NORMAL) 11/24/18 07:40 Sodium 139 mmol/L (132-148) 11/25/18 07:20 Potassium 3.6 mmol/L (3.6-5.0) 11/25/18 07:20 Chloride 109 mmol/L (98-107) H 11/25/18 07:20 Carbon Dioxide 22 mmol/L (21-33) 11/25/18 07:20 Anion Gap 12 (10-20) 11/25/18 07:20 BUN 12 mg/dL (7-21) 11/25/18 07:20 Creatinine 0.6 mg/dl (0.8-1.5) L 11/25/18 07:20 Est GFR ( Amer) > 60 11/25/18 07:20 Est GFR (Non-Af Amer) > 60 11/25/18 07:20 Random Glucose 136 mg/dL (70-110) H 11/25/18 07:20 Calcium 8.3 mg/dL (8.4-10.5) L 11/25/18 07:20 Phosphorus 3.4 mg/dL (2.5-4.5) 11/23/18 18:00 Magnesium 1.9 mg/dL (1.7-2.2) 11/23/18 18:00 Total Bilirubin 0.7 mg/dL (0.2-1.3) 11/25/18 07:20 AST 60 U/L (17-59) H 11/25/18 07:20 ALT 63 U/L (7-56) H 11/25/18 07:20 Alkaline Phosphatase 122 U/L (38-126) 11/25/18 07:20 Total Protein 7.6 g/dL (5.8-8.3) 11/25/18 07:20 Albumin 3.5 g/dL (3.0-4.8) 11/25/18 07:20 Globulin 4.2 gm/dL 11/25/18 07:20 Albumin/Globulin Ratio 0.8 (1.1-1.8) L 11/25/18 07:20 Urine Opiates Screen Positive (NEGATIVE) H 11/23/18 23:30 Urine Methadone Screen Negative (NEGATIVE) 11/23/18 23:30 Ur Barbiturates Screen Negative (NEGATIVE) 11/23/18 23:30 Ur Phencyclidine Scrn Negative (NEGATIVE) 11/23/18 23:30 Ur Amphetamines Screen Negative (NEGATIVE) 11/23/18 23:30 U Benzodiazepines Scrn Negative (NEGATIVE) 11/23/18 23:30 U Oth Cocaine Metabols Positive (NEGATIVE) H 11/23/18 23:30 U Cannabinoids Screen Negative (NEGATIVE) 11/23/18 23:30 Alcohol, Quantitative < 10 mg/dL (0-10) 11/23/18 18:00 - Hospital Course Hospital Course: Johnathan Skinner DO PGY1 - Internal Medicine [employer] - Hospitalist DC Summary: 47 yo male with a PMH of Hep C (not on treatment), IVDA heroine abuse, cellulitis, hypertension, and right forearm abscess who presents to the ED after being called back for a positive wound culture for MRSA. During last hospital visit, patient was admitted for right forearm abscess s/p ID by surgical team; left AMA on 11/21 prior to completing IV ABX. Patient returned to the ED after being called on 11/22 to notify him cultures were MRSA+ and he would require treatment. Upon presentation patient was not complaining of forearm pain, numbness/ tingling, throbbing sensation, or discharge. He was afebrile throughout hospital course without leukocytosis; ID was consulted for patient and recommended to monitor on IV Vancomycin prior to discharging him w/ Doxycycline. Of note patient was opiate positive on admission; throughout hospital course he did exhibit some agitation/ anxiety as well as nasuea and vomiting; given clonidine which improved symptoms. Morning prior to discharge, patient was seen and evaluated at bedside; Overnight patient received clonidine and reglan for agitation/anxiety and nausea. Denied any N/V at time of evaluation this morning; denied any abdominal pain or diarrhea. No fevers or chills reported; Afebrile on review of vitals this morning. Discharge recommendations and follow up instructions reviewed with patient; Patient received Rx for Abx prior to discharge. Patient was seen, examined, and evaluated w/ attending Dr. Mimi Skinner prior to discharge. Discharge Exam - Head Exam Head Exam: ATRAUMATIC, NORMOCEPHALIC - Eye Exam Eye Exam: EOMI, Normal appearance - Respiratory Exam Respiratory Exam: Clear to PA & Lateral, UNREMARKABLE - Cardiovascular Exam Cardiovascular Exam: RRR. absent: Systolic Murmur - GI/Abdominal Exam GI & Abdominal Exam: Soft. absent: Tenderness - Extremities Exam Extremities exam: normal capillary refill, pedal pulses present Additional comments: RUE w/ abscess; mild erythema and iduration; No discharge or warmth appreciated. No tenderness to palpation. - Neurological Exam Neurological exam: Alert, CN II-XII Intact, Oriented x3 - Psychiatric Exam Psychiatric exam: Normal Affect, Normal Mood - Skin Skin Exam: Dry, Intact, Normal Color, Warm Discharge Plan - Discharge Medications Prescriptions: Doxycycline Hyclate [Doryx] 100 mg PO BID #10 cap - Follow Up Plan Condition: FAIR Disposition: HOME/ ROUTINE Instructions: Drug Abuse and Drug Addiction (DC), Quitting Smoking, Cellulitis (Skin Infection), Adult (DC) Additional Instructions: Please follow up with your primary care doctor, Dr. Lieberman within 3-5 days of discharge Please start taking doxycycline 100mg two times a day for five days Please refrain from using any drugs If your symptoms return or you experience new concerning symptoms please call 911 or go to the nearest emergency department immediately Referrals: Elidia Lieberman DO [Primary Care Provider] -
== END 2018-11-25 13:42 | disposition home or self-care (01) ==
LOC: ED 17:05 → ERH 19:05 → 5RSO 22:57
PROVIDERS: ADMIT Internal Medicine; ATTEND Hospitalist
DX: L02.413 Cutaneous abscess of right upper limb (principal); L03.113 Cellulitis of right upper limb; B95.62 Methicillin resistant Staphylococcus aureus infection as the cause of diseases classified elsewhere; I10 Essential (primary) hypertension; B19.20 Unspecified viral hepatitis C without hepatic coma; F11.10 Opioid abuse, uncomplicated; F41.9 Anxiety disorder, unspecified; Z87.891 Personal history of nicotine dependence
CPT/HCPCS: 36415; 80053; 80320; 80324; 80345; 80346; 80349; 80353; 80358; 80361; 83735; 83992; 84100; 85025; 96365; 96366; 99285; G0378; J1200; J2405; J2765